=== PATIENT | male | born 1970 | race Caucasian/White ===

== ENCOUNTER 2020-10-30 10:40 | Outpatient (REF) | payer BC, SELFPAY ==
[2020-10-30 13:53] LABS: MANUAL DIFF FLAG NO
[2020-10-30 14:00] LABS: Basophils Percent Auto 0.4 % (0-2); Eosinophils Absolute Auto 0.1 X10*3/uL (0.0-0.4); Eosinophils Percent Auto 1.5 % (0-4); Imm Gran Abs Auto 0.05 X10*3/uL (0.00-0.03); Imm Gran Pct Auto 0.7 % (0.0-0.4); Lymphocytes Absolute Auto 1.7 X10*3/uL (1.2-4.9); Lymphocytes Percent Auto 22.6 % (20-40); Mean Corpuscular HGB Conc 35.7 g/dl (31.0-36.0); Mean Corpuscular Hemoglobin 33.2 pg (27.0-33.0); Mean Corpuscular Volume 92.9 fL (80-98); Monocytes Percent Auto 13.4 % (2-11); Neutrophils Absolute Auto 4.5 X10*3/uL (2.0-8.3); Neutrophils Percent Auto 61.4 % (45-73); Platelet Count 177 X10*3/uL (160-400); Red Blood Count 4.52 X10*6/uL (4.60-5.80); Red Cell Distribution Width 12.3 % (11.0-16.0); White Blood Count 7.4 X10*3/uL (4.8-10.8)
[2020-10-30 14:27] LABS: Alanine Aminotransferase 74 U/L (0-40); Albumin Level 4.6 g/dL (3.5-5.0); Alkaline Phosphatase 91 U/L (39-117); Anion Gap 14 (12-20); Aspartate Amino Transferase 82 U/L (5-37); Bilirubin Total 0.6 mg/dL (0.0-1.0); Blood Urea Nitrogen 10 mg/dL (9-16); Calcium 10.1 mg/dL (8.4-10.2); Carbon Dioxide 26 mmol/L (22-29); Chloride 104 mmol/L (96-108); Cholesterol 182 mg/dL; Estimated Glomerular Filt Rate > 60; Glucose Fasting 140 mg/dL (60-99); HDL Cholesterol 57 mg/dL; LDL Cholesterol Calculated 110 mg/dl; Potassium 4.9 mmol/L (3.3-5.1); Sodium 139 mmol/L (135-145); Total Protein 7.9 g/dL (6.5-8.0); Triglycerides 77 mg/dL
[2020-10-30 14:33] LABS: Prostate Specific Antigen 0.57 ng/mL (<0.05-4.0)
[2020-11-02 08:12] LABS: ~HepC Num1 0.15 S/CO (0.00-0.79); ~Hepatitis C Antibody Nonreactive (Nonreactive)
== END 2020-10-30 10:41 | disposition home or self-care (01) ==
LOC: HO.MANLDS 10:40
PROVIDERS: PCP Internal Medicine; Visit Provider Internal Medicine
DX: Z00.00 Encounter for general adult medical examination without abnormal findings (principal); Z12.5 Encounter for screening for malignant neoplasm of prostate; Z11.59 Encounter for screening for other viral diseases; M10.9 Gout, unspecified
CPT/HCPCS: 36415; 80053; 80061; 84153; 84550; 85025; 86803

== ENCOUNTER 2020-11-30 09:34 | Outpatient (REF) | payer BC, SELFPAY ==
[2020-11-30 12:15] LABS: Estimated Average Glucose 131 mg/dL; Hemoglobin A1c % 6.2 %
== END 2020-11-30 09:35 | disposition home or self-care (01) ==
LOC: HO.MANLDS 09:34
PROVIDERS: PCP Internal Medicine; Visit Provider Internal Medicine
DX: R73.01 Impaired fasting glucose (principal)
CPT/HCPCS: 36415; 83036

== ENCOUNTER 2021-03-08 15:59 | Outpatient (REF) | payer BC, SELFPAY ==
[2021-03-09 03:27] LABS: Estimated Average Glucose 126 mg/dL
== END 2021-03-08 16:00 | disposition home or self-care (01) ==
LOC: HO.MANLDS 15:59
PROVIDERS: PCP Internal Medicine; Visit Provider Internal Medicine
DX: R73.01 Impaired fasting glucose (principal)
CPT/HCPCS: 36415; 83036

== ENCOUNTER 2021-03-12 11:17 | Outpatient (REF) | payer BC, SELFPAY ==
--- NOTE | ~2021-03-12 | XR_ITS ---
EXAMINATION: XR CERVICAL SPINE CLINICAL INFORMATION: Cervical disc degeneration. COMPARISON: None TECHNIQUE: 3 views of the cervical spine were obtained. FINDINGS: No abnormal prevertebral soft tissue swelling is seen. The disc spaces are maintained. No acute fracture or destructive bony lesion is evident. XR/XR cervical spine 3V IMPRESSION: No significant bony abnormality of the cervical spine identified.
== END 2021-03-12 11:18 | disposition home or self-care (01) ==
LOC: HO.XRAY 11:17
PROVIDERS: PCP Internal Medicine; Visit Provider Internal Medicine
DX: M50.30 Other cervical disc degeneration, unspecified cervical region (principal)
CPT/HCPCS: 72040

== ENCOUNTER 2021-04-07 13:18 | Outpatient (REF) | payer BC, SELFPAY ==
--- NOTE | ~2021-04-07 | MR_ITS ---
MR CERVICAL SPINE WITHOUT CONTRAST CLINICAL INFORMATION: Cervical disc degeneration. COMPARISON: Cervical spine radiographs 03/12/2021. TECHNIQUE: MRI of the cervical spine was obtained using routine sequences without contrast. FINDINGS: Cervical alignment is maintained. Vertebral body heights are preserved. There is no bone marrow edema. There are no acute fractures. Craniocervical junction is unremarkable. Disc volumes are maintained. Partially imaged intracranial compartment is unremarkable. Accounting for artifact there is no cord signal abnormality. Cervical arterial flow voids are preserved. There are no significant extraspinal soft tissue findings. C2-C3: Disc contour is normal. Right-sided facet arthropathy. No central canal stenosis and no foraminal stenosis. C3-C4: Disc contour is normal. No central canal stenosis and no foraminal stenosis. C4-C5: Disc contour is normal. No central canal stenosis and no foraminal stenosis. C5-C6: Disc contour is normal. No central canal stenosis and no foraminal stenosis. C6-C7: Disc contour is normal. Bilateral facet arthropathy. No central canal stenosis and no foraminal stenosis. C7-T1: Disc contour is normal. No central canal stenosis and no foraminal stenosis. MR/MR cervical spine wo con IMPRESSION: Mild spondylitic changes at the C2-C3 and C6-C7 levels. There is no severe central canal stenosis and there is no severe foraminal stenosis within the cervical spine. No mass effect on the cervical spinal cord.
== END 2021-04-07 13:19 | disposition home or self-care (01) ==
LOC: HO.MRI 13:18
PROVIDERS: Visit Provider Internal Medicine
DX: M50.30 Other cervical disc degeneration, unspecified cervical region (principal)
CPT/HCPCS: 72141

== ENCOUNTER 2021-09-01 19:52 | Outpatient (REF) | payer BC, SELFPAY | END 2021-09-01 19:53 | disposition home or self-care (01) | LOC: HO.LNP 19:52 | PROVIDERS: Visit Provider Internal Medicine | DX: L03.115 Cellulitis of right lower limb (principal) | CPT/HCPCS: 87071; 87147; 87205 ==

== ENCOUNTER 2021-09-28 14:11 | Outpatient (REF) | payer BC, SELFPAY ==
--- NOTE | ~2021-09-28 | MR_ITS ---
EXAMINATION: MRI FOOT WITHOUT AND WITH CONTRAST, RIGHT CLINICAL INFORMATION: Previous Griffith's neuroma surgery with nonhealing wound. COMPARISON: None TECHNIQUE: MRI without and with intravenous administration of 9 mL of Gadavist is performed on the right foot on a 1.5 T scanner. FINDINGS: There is a peripherally enhancing fluid collection within the 3rd interspace communicating with a defect in the dorsal skin surface overall measuring approximately 1.7 x 0.8 x 3.8 cm extending from the dorsal skin surface to the plantar aspect of the interspace. Given the history of cellulitis and recent surgery, this presumably represents an abscess. There are no adjacent marrow changes to suggest osteomyelitis. There is a trace effusion of the 3rd MTP joint with enhancing synovitis. This may be reactive. MR/MR foot RT wo/w con IMPRESSION: Peripherally enhancing fluid collection of the 3rd interspace communicating with a dorsal skin defect as described.
== END 2021-09-28 14:12 | disposition home or self-care (01) ==
LOC: HO.MRI 14:11
PROVIDERS: Visit Provider Internal Medicine
DX: L03.115 Cellulitis of right lower limb (principal)
CPT/HCPCS: 73720; A9585

== ENCOUNTER 2021-10-27 15:34 | Outpatient (REF) | payer BC, SELFPAY ==
[2021-10-27 18:48] LABS: MANUAL DIFF FLAG NO
[2021-10-27 18:53] LABS: Basophils Percent Auto 0.5 % (0-2); Eosinophils Absolute Auto 0.1 X10*3/uL (0.0-0.4); Eosinophils Percent Auto 1.8 % (0-4); Hemoglobin 14.6 g/dl (14.0-18.0); Imm Gran Abs Auto 0.03 X10*3/uL (0.00-0.03); Imm Gran Pct Auto 0.4 % (0.0-0.4); Lymphocytes Absolute Auto 1.7 X10*3/uL (1.2-4.9); Lymphocytes Percent Auto 21.8 % (20-40); Mean Corpuscular HGB Conc 35.6 g/dl (31.0-36.0); Mean Corpuscular Volume 92.8 fL (80.0-98.0); Mean Platelet Volume 10.2 fL (9.4-12.4); Monocytes Absolute Auto 0.8 X10*3/uL (0.1-1.2); Monocytes Percent Auto 10.6 % (2-11); Neutrophils Percent Auto 64.9 % (45-73); Platelet Count 174 X10*3/uL (160-400); Red Blood Count 4.42 X10*6/uL (4.60-5.80); Red Cell Distribution Width 12.6 % (11.0-16.0); White Blood Count 7.8 X10*3/uL (4.8-10.8)
[2021-10-27 18:59] LABS: Estimated Average Glucose 126 mg/dL
[2021-10-27 19:05] LABS: C Reactive Protein 0.16 mg/dL (< or = 0.50); Uric Acid 4.3 mg/dL (3.4-7.0)
[2021-10-27 19:26] LABS: Free T4 (Free Thyroxine) 1.01 ng/dL (0.71-1.85); Prostate Specific Antigen 0.68 ng/mL (<0.05-4.0); Thyroid Stimulating Hormone 1.46 uIU/mL (0.32-4.0); Vitamin D 25-OH Total 23.9 ng/mL (>30)
[2021-10-27 19:33] LABS: Erythrocyte Sedimentation Rate 6 MM/HR (0-15)
[2021-10-27 19:48] LABS: Folate 6.9 ng/mL (> or = 4.0); Vitamin B12 201 pg/mL (200-900)
== END 2021-10-27 15:35 | disposition home or self-care (01) ==
LOC: HO.MANLDS 15:34
PROVIDERS: Visit Provider Physician Assistant
DX: Z12.5 Encounter for screening for malignant neoplasm of prostate (principal); G62.89 Other specified polyneuropathies; L03.031 Cellulitis of right toe; M10.9 Gout, unspecified; Z80.42 Family history of malignant neoplasm of prostate
CPT/HCPCS: 36415; 82306; 82607; 82746; 83036; 84153; 84439; 84443; 84550; 85025; 85652; 86140

== ENCOUNTER 2021-11-18 07:27 | Outpatient (REF) | payer BC, SELFPAY ==
--- NOTE | ~2021-11-18 | MR_ITS ---
EXAMINATION: MRI FOOT WITHOUT CONTRAST, LEFT CLINICAL INFORMATION: Dorsal left foot pain. Pain with weightbearing. Swelling. COMPARISON: None. TECHNIQUE: Multisequence MR imaging of the left foot was obtained without contrast on a high field strength scanner. FINDINGS: BONE: No marrow edema. No stress reaction or fracture. No concerning lytic or blastic osseous lesion. Mild articular cartilage thinning and attenuation with osteophytes at the 1st metatarsophalangeal joint. MUSCLES/TENDONS: Intact. LIGAMENTS: The Lisfranc ligament is intact. The plantar plates are intact. SOFT TISSUES: No soft tissue mass. No evidence of Rgiffith's neuroma. Trace fluid interposed between the 3rd and 4th metatarsal heads which could represent mild adventitial bursitis. MR/MR foot LT wo con IMPRESSION: 1. No acute osseous injury. No stress reaction or fracture. 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 2. Possible mild adventitial bursitis interposed between the 3rd and 4th metatarsal heads. No evidence of Griffith's neuroma.
== END 2021-11-18 07:28 | disposition home or self-care (01) ==
LOC: HO.MRI 07:27
PROVIDERS: Visit Provider Internal Medicine
DX: M79.672 Pain in left foot (principal); M79.89 Other specified soft tissue disorders
CPT/HCPCS: 73718

== ENCOUNTER 2022-03-07 11:16 | Outpatient (REF) | payer BC, SELFPAY ==
[2022-03-07 13:55] LABS: MANUAL DIFF FLAG NO
[2022-03-07 14:02] LABS: Basophils Percent Auto 0.6 % (0-2); Eosinophils Absolute Auto 0.1 X10*3/uL (0.0-0.4); Eosinophils Percent Auto 1.1 % (0-4); Hematocrit 41.3 % (42.0-52.0); Imm Gran Abs Auto 0.03 X10*3/uL (0.00-0.03); Imm Gran Pct Auto 0.5 % (0.0-0.4); Lymphocytes Absolute Auto 1.3 X10*3/uL (1.2-4.9); Lymphocytes Percent Auto 20.3 % (20-40); Mean Corpuscular HGB Conc 36.3 g/dl (31.0-36.0); Mean Corpuscular Hemoglobin 32.9 pg (27.0-33.0); Mean Corpuscular Volume 90.6 fL (80.0-98.0); Mean Platelet Volume 9.9 fL (9.4-12.4); Monocytes Absolute Auto 0.8 X10*3/uL (0.1-1.2); Monocytes Percent Auto 11.6 % (2-11); Neutrophils Absolute Auto 4.3 x10*3/uL (2.0-8.3); Neutrophils Percent Auto 65.9 % (45-73); Platelet Count 192 X10*3/uL (160-400); Red Blood Count 4.56 X10*6/uL (4.60-5.80); Red Cell Distribution Width 12.2 % (11.0-16.0); White Blood Count 6.5 X10*3/uL (4.8-10.8)
[2022-03-07 14:11] LABS: Estimated Average Glucose 131 mg/dL; Hemoglobin A1c % 6.2 %
[2022-03-07 14:42] LABS: Erythrocyte Sedimentation Rate 4 MM/HR (0-15)
[2022-03-07 15:10] LABS: C Reactive Protein 0.16 mg/dL (< or = 0.50); Free T4 (Free Thyroxine) 0.99 ng/dL (0.71-1.85); Prostate Specific Antigen 0.76 ng/mL (<0.05-4.0); Thyroid Stimulating Hormone 1.53 uIU/mL (0.32-4.0); Uric Acid 5.5 mg/dL (3.4-7.0); Vitamin D 25-OH Total 20.4 ng/mL (>30)
[2022-03-07 15:29] LABS: Folate 16.2 ng/mL (> or = 4.0); Vitamin B12 407 pg/mL (200-900)
== END 2022-03-07 11:17 | disposition home or self-care (01) ==
LOC: HO.MANLDS 11:16
PROVIDERS: Visit Provider Internal Medicine
DX: R73.01 Impaired fasting glucose (principal); Z80.42 Family history of malignant neoplasm of prostate; G62.89 Other specified polyneuropathies; L03.031 Cellulitis of right toe; M10.9 Gout, unspecified; Z12.5 Encounter for screening for malignant neoplasm of prostate
CPT/HCPCS: 36415; 82306; 82607; 82746; 83036; 84153; 84439; 84443; 84550; 85025; 85652; 86140

== ENCOUNTER 2022-05-10 15:58 | Outpatient (REF) | payer BC, SELFPAY ==
[2022-05-10 20:59] LABS: Alanine Aminotransferase 53 U/L (0-40); Albumin Level 4.3 g/dL (3.5-5.0); Alkaline Phosphatase 87 U/L (39-117); Anion Gap 16 (12-20); Aspartate Amino Transferase 61 U/L (5-37); Bilirubin Total 0.7 mg/dL (0.0-1.0); Blood Urea Nitrogen 9 mg/dL (9-16); Calcium 9.9 mg/dL (8.4-10.2); Carbon Dioxide 27 mmol/L (22-29); Chloride 101 mmol/L (96-108); Estimated Glomerular Filt Rate > 60; Glucose Random 172 mg/dL (60-115); Potassium 4.6 mmol/L (3.3-5.1); Sodium 139 mmol/L (135-145)
[2022-05-10 21:27] LABS: Folate 16.9 ng/mL (> or = 4.0); Free T4 (Free Thyroxine) 0.99 ng/dL (0.71-1.85); Thyroid Stimulating Hormone 1.51 uIU/mL (0.32-4.0); Vitamin B12 391 pg/mL (200-900)
== END 2022-05-10 15:59 | disposition home or self-care (01) ==
LOC: HO.MANLDS 15:58
PROVIDERS: Visit Provider Internal Medicine
DX: G62.89 Other specified polyneuropathies (principal)
CPT/HCPCS: 36415; 80053; 82607; 82746; 84439; 84443

== ENCOUNTER 2022-05-20 10:50 | Outpatient (REF) | payer BC, SELFPAY ==
[2022-05-20 14:33] LABS: Estimated Average Glucose 134 mg/dL; Hemoglobin A1c % 6.3 %
[2022-05-20 14:47] LABS: Alanine Aminotransferase 83 U/L (0-40); Albumin Level 4.3 g/dL (3.5-5.0); Alkaline Phosphatase 79 U/L (39-117); Anion Gap 14 (12-20); Aspartate Amino Transferase 89 U/L (5-37); Blood Urea Nitrogen 11 mg/dL (9-16); Calcium 9.4 mg/dL (8.4-10.2); Carbon Dioxide 26 mmol/L (22-29); Chloride 100 mmol/L (96-108); Estimated Glomerular Filt Rate > 60; Glucose Random 197 mg/dL (60-115); Potassium 4.3 mmol/L (3.3-5.1); Sodium 136 mmol/L (135-145); Total Protein 7.1 g/dL (6.5-8.0)
[2022-05-20 15:10] LABS: Folate 16.3 ng/mL (> or = 4.0); Free T4 (Free Thyroxine) 0.95 ng/dL (0.71-1.85); Vitamin B12 > 2000 pg/mL (200-900)
== END 2022-05-20 10:51 | disposition home or self-care (01) ==
LOC: HO.MANLDS 10:50
PROVIDERS: Visit Provider Internal Medicine
DX: R73.01 Impaired fasting glucose (principal); G62.89 Other specified polyneuropathies
CPT/HCPCS: 36415; 80053; 82607; 82746; 83036; 84439; 84443

== ENCOUNTER 2022-09-13 | Outpatient (REF) | payer BC, SELFPAY ==
[2022-09-13 18:30] LABS: MANUAL DIFF FLAG NO
[2022-09-13 18:39] LABS: Basophils Percent Auto 0.5 % (0-2); Eosinophils Absolute Auto 0.1 X10*3/uL (0.0-0.4); Eosinophils Percent Auto 0.8 % (0-4); Imm Gran Abs Auto 0.01 X10*3/uL (0.00-0.03); Imm Gran Pct Auto 0.2 % (0.0-0.4); Lymphocytes Absolute Auto 1.5 X10*3/uL (1.2-4.9); Lymphocytes Percent Auto 24.7 % (20-40); Mean Corpuscular HGB Conc 35.7 g/dl (31.0-36.0); Mean Corpuscular Hemoglobin 33.2 pg (27.0-33.0); Mean Corpuscular Volume 92.9 fL (80.0-98.0); Mean Platelet Volume 10.9 fL (9.4-12.4); Monocytes Absolute Auto 0.8 X10*3/uL (0.1-1.2); Monocytes Percent Auto 12.3 % (2-11); Neutrophils Absolute Auto 3.8 x10*3/uL (2.0-8.3); Neutrophils Percent Auto 61.5 % (45-73); Platelet Count 156 X10*3/uL (160-400); Red Blood Count 4.52 X10*6/uL (4.60-5.80); Red Cell Distribution Width 12.4 % (11.0-16.0); White Blood Count 6.2 X10*3/uL (4.8-10.8)
[2022-09-13 18:53] LABS: Alanine Aminotransferase 67 U/L (0-40); Albumin Level 4.6 g/dL (3.5-5.0); Alkaline Phosphatase 85 U/L (39-117); Anion Gap 17 (12-20); Aspartate Amino Transferase 70 U/L (5-37); Bilirubin Total 1.5 mg/dL (0.0-1.0); Blood Urea Nitrogen 10 mg/dL (9-16); Calcium 9.9 mg/dL (8.4-10.2); Carbon Dioxide 25 mmol/L (22-29); Chloride 98 mmol/L (96-108); Estimated Glomerular Filt Rate > 60; Glucose Random 141 mg/dL (60-115); Magnesium 1.6 mg/dL (1.6-2.6); Potassium 3.9 mmol/L (3.3-5.1); Sodium 136 mmol/L (135-145); Total Protein 8.3 g/dL (6.5-8.0)
[2022-09-13 19:08] LABS: Thyroid Stimulating Hormone 1.69 uIU/mL (0.32-4.0)
[2022-09-13 19:22] LABS: Folate 11.9 ng/mL (> or = 4.0); Vitamin B12 453 pg/mL (200-900)
[2022-09-13 19:28] LABS: Erythrocyte Sedimentation Rate 3 MM/HR (0-15)
== END 2022-09-13 00:01 ==
LOC: HO.MANLDS
PROVIDERS: Visit Provider Internal Medicine
DX: R20.2 Paresthesia of skin (principal)
CPT/HCPCS: 36415; 80053; 82607; 82746; 83735; 84443; 85025; 85652

== ENCOUNTER 2022-12-16 10:26 | Outpatient (REF) | payer BC, SELFPAY ==
[2022-12-16 15:02] LABS: Estimated Average Glucose 120 mg/dL; Hemoglobin A1c % 5.8 % (<6.0)
== END 2022-12-16 10:27 | disposition home or self-care (01) ==
LOC: HO.MANLDS 10:26
PROVIDERS: Visit Provider Internal Medicine
DX: R73.9 Hyperglycemia, unspecified (principal)
CPT/HCPCS: 36415; 83036

== ENCOUNTER 2023-02-15 09:30 | Outpatient (REF) | payer BC, SELFPAY ==
[2023-02-15 13:34] LABS: Estimated Average Glucose 137 mg/dL; Hemoglobin A1c % 6.4 % (<6.0)
[2023-02-15 14:06] LABS: Alanine Aminotransferase 72 U/L (0-40); Albumin Level 4.3 g/dL (3.5-5.0); Alkaline Phosphatase 82 U/L (39-117); Anion Gap 14 (12-20); Aspartate Amino Transferase 108 U/L (5-37); Bilirubin Total 0.8 mg/dL (0.0-1.0); Blood Urea Nitrogen 10 mg/dL (9-16); Calcium 9.4 mg/dL (8.4-10.2); Carbon Dioxide 27 mmol/L (22-29); Chloride 102 mmol/L (96-108); Estimated Glomerular Filt Rate > 60; Glucose Random 148 mg/dL (60-115); Potassium 4.2 mmol/L (3.3-5.1); Sodium 139 mmol/L (135-145); Total Protein 7.4 g/dL (6.5-8.0)
[2023-02-15 14:31] LABS: Folate 4.2 ng/mL (> or = 4.0); Vitamin B12 1656 pg/mL (200-900)
[2023-02-15 14:33] LABS: Free T4 (Free Thyroxine) 0.92 ng/dL (0.71-1.85); Thyroid Stimulating Hormone 1.31 uIU/mL (0.32-4.0)
== END 2023-02-15 09:31 | disposition home or self-care (01) ==
LOC: HO.MANLDS 09:30
PROVIDERS: Visit Provider Internal Medicine
DX: R73.9 Hyperglycemia, unspecified (principal); G62.89 Other specified polyneuropathies; G64 Other disorders of peripheral nervous system
CPT/HCPCS: 36415; 80053; 82607; 82746; 83036; 84439; 84443

== ENCOUNTER 2023-03-01 10:05 | Outpatient (AMB) | payer BC, SELFPAY ==
--- NOTE | 2023-03-01 10:07 | MHC.OFFVIS ---
Intake Vital Signs 03/01/23 10:16 Height 5 ft 9 in Weight 204 lb 6 oz BMI 30.2 BP 146/80 H Blood Pressure Location Lt brachial Position Sitting Respiration 18 Pulse 79 Pulse Source Pulse Oximeter Pulse Oximetry (%) 98 Oxygen Delivery Method Room Air Intake Visit Reasons: Neuropathy / Neuropathic Pain/LMOVM Allergies No Known Allergies Allergy (Verified 03/01/23 10:11) HPI HPI Comments History of Present Illness Details Fidel is a very pleasant 53-year-old male who presents to the office today for evaluation management of his chronic bilateral painful peripheral neuropathy. Patient reports that he is suffering with this pain for at least the last 2 years. He has had nerve conduction studies and been evaluated by Neurology, told that is consistent with diabetic peripheral neuropathy. Patient reports that he had A1c testing 5.8, most recent was 6.4. He has never been started on any medications for diabetes. At last check he was advised to monitor diet and make other lifestyle changes to try to improve his A1c. Patient reports that initially they thought he had mortans neuroma which he subsequently underwent surgery for removal only to find out that this was not the cause of his pain. He has tried gabapentin in the past but it made him feel unwell. He currently takes pregabalin that provides minimal relief, the dose was recently increased by Neurology from 75 mg b.i.d. to 75 mg t.i.d.. He has been told there is no way to reverse the painful neuropathy, and was referred here to manage the symptoms. Pain today is rated as a 10/10, constant. In terms of muscle damage condition is described as burning, aching, sharp, tingling, stabbing, pins and needles. Pain is negatively impacting patient's normal sleep and ability to perform activities of daily living. 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 [facility] Medical History (Updated 03/01/23 @ 10:11 by Jessica Camacho, TROUBLE OPERATOR, CLOTH FRAMER) Impaired fasting glucose Griffith's neuroma of both feet Essential hypertension Abscess of foot Swelling of left foot Neuropathy Cellulitis Peripheral nerve disease Hyperglycemia Hyperlipidemia Paresthesia of lower extremity Type 2 diabetes mellitus without complication Spasm of back muscles Gout Review of Systems Const All systems reviewed & are unremarkable except as noted in HPI and below Physical Exam Vital Signs: Last Vital Signs Pulse 79 03/01/23 10:16 Resp 18 03/01/23 10:16 BP 146/80 H 03/01/23 10:16 Pulse Ox 98 03/01/23 10:16 Oxygen Delivery Method Room Air 03/01/23 10:16 BMI result Body Mass Index 30.2 General: awake, alert, oriented. Answers questions appropriately. Fully engaged in examination. Skin: warm, dry, intact HEENT: Normocephalic. Hearing intact. Cardiac: External chest normal in appearance. Respiratory: No cough, audible wheezing or stridor. Abdomen: without gross distension. MS: No obvious swelling or deformities. Able to transition from sit to stand unassisted. Ambulates with bilaterally normal heel strike and toe off Neurological: Oriented to person, place, time and situation. Thought process intact. Psychiatric: Appropriate mood and affect. Good judgment and insight. Results Reviewed Results Reviewed: 12/2022 Assessment & Plan Assessment & Plan (1) Peripheral neuropathy: Code(s): G62.9 - Polyneuropathy, unspecified Plan Fidel is a very pleasant 53 year old male who presented to the office today for evaluation and management of his painful bilateral peripheral neuropathy. Patient has been suffering with this pain for many years and tried gabapentin and lyrica with minimal relief. EMG reviewed, as per above. Discussed options for treatment including topical Capsaicin in office application, peripheral nerve stimulation and more permanent neuromodulation. Discussed SCS for painful peripheral neuropathy if he does not find relief with Qutenza application, informational pamphlet for Nevro SCS provided. Will trial Amitriptyline 10mg po daily at bedtime for neuropathic pain. Will submit PA for Qutenza, patient to be called to schedule once approved. He is aware of the pre/post instructions including application of EMLA cream prior to coming in for application appointment. All questions and concerns have been answered and patient agrees with the plan. Follow up for Qutenza application, sooner if needed. Medications: New amitriptyline 10 mg PO BEDTIME 30 tabs 0RF Coding Level of Care Code New Pt Level 4 (79991) Diagnoses Peripheral neuropathy G62.9
[2023-03-01 10:16] VITALS: BP 146/80; PULSE 79; RESP 18; O2SAT 98; BMI 30.2
== END 2023-03-01 10:43 | disposition home or self-care (01) ==
PROVIDERS: PCP Internal Medicine; Referring Provider Internal Medicine; Visit Provider Registered Nurse Emergency
DX: G62.9 Polyneuropathy, unspecified (principal); Z79.891 Long term (current) use of opiate analgesic
CPT/HCPCS: 99204

== ENCOUNTER → 2023-03-01 10:05 | Outpatient (BNVA) | payer BC, SELFPAY | PROVIDERS: PCP Internal Medicine; Referring Provider Internal Medicine; Visit Provider Registered Nurse Emergency ==

== ENCOUNTER 2023-05-18 12:49 | Outpatient (AMB) | payer BC, SELFPAY ==
--- NOTE | 2023-05-18 13:16 | MHC.OFFVIS ---
Intake Vital Signs 05/18/23 13:21 Height 5 ft 9 in Weight 208 lb 6 oz BMI 30.8 BP 138/90 H Blood Pressure Location Lt brachial Position Sitting Respiration 17 Pulse 80 Pulse Source Pulse Oximeter Pulse Oximetry (%) 97 Oxygen Delivery Method Room Air Intake Visit Reasons: NEUROPATHIC PAIN/confirmed Allergies No Known Allergies Allergy (Verified 05/18/23 13:21) HPI HPI Comments History of Present Illness Details Patient presents back to the office today for follow-up on his chronic bilateral painful peripheral neuropathy. Patient reports that he took 1 dose of amitriptyline after last visit but did not like how it made him feel. He has not taken any since. He continues with Lyrica as prescribed by outside provider with some relief but ultimately the pain persists. Qutenza was scheduled after last visit but patient canceled the appointment and was then lost to follow-up. He has the topical EMLA cream and would like to reinitiate the process for Qutenza. Prior: Fidel is a very pleasant 53-year-old male who presents to the office today for evaluation management of his chronic bilateral painful peripheral neuropathy. Patient reports that he is suffering with this pain for at least the last 2 years. He has had nerve conduction studies and been evaluated by Neurology, told that is consistent with diabetic peripheral neuropathy. Patient reports that he had A1c testing 5.8, most recent was 6.4. He has never been started on any medications for diabetes. At last check he was advised to monitor diet and make other lifestyle changes to try to improve his A1c. Patient reports that initially they thought he had mortans neuroma which he subsequently underwent surgery for removal only to find out that this was not the cause of his pain. He has tried gabapentin in the past but it made him feel unwell. He currently takes pregabalin that provides minimal relief, the dose was recently increased by Neurology from 75 mg b.i.d. to 75 mg t.i.d.. He has been told there is no way to reverse the painful neuropathy, and was referred here to manage the symptoms. Pain today is rated as a 10/10, constant. In terms of muscle damage condition is described as burning, aching, sharp, tingling, stabbing, pins and needles. Pain is negatively impacting patient's normal sleep and ability to perform activities of daily living. 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 [facility] [facility] Medical History (Updated 03/01/23 @ 10:11 by Jessiac Camacho, NUCLEAR OPERATIONS SPECIALIST, NETWORK RELAY TESTER) Impaired fasting glucose Griffith's neuroma of both feet Essential hypertension Abscess of foot Swelling of left foot Neuropathy Cellulitis Peripheral nerve disease Hyperglycemia Hyperlipidemia Paresthesia of lower extremity Type 2 diabetes mellitus without complication Spasm of back muscles Gout Review of Systems Const All systems reviewed & are unremarkable except as noted in HPI and below Physical Exam Vital Signs: Last Vital Signs Pulse 80 05/18/23 13:21 Resp 17 05/18/23 13:21 BP 138/90 H 05/18/23 13:21 Pulse Ox 97 05/18/23 13:21 Oxygen Delivery Method Room Air 05/18/23 13:21 BMI result Body Mass Index 30.8 General: awake, alert, oriented. Answers questions appropriately. Fully engaged in examination. Skin: warm, dry, intact HEENT: Normocephalic. Hearing intact. Cardiac: External chest normal in appearance. Respiratory: No cough, audible wheezing or stridor. Abdomen: without gross distension. MS: No obvious swelling or deformities. Able to transition from sit to stand unassisted. Ambulates with bilaterally normal heel strike and toe off Neurological: Oriented to person, place, time and situation. Thought process intact. Psychiatric: Appropriate mood and affect. Good judgment and insight. Results Reviewed Results Reviewed: 12/2022 Assessment & Plan Assessment & Plan (1) Peripheral neuropathy: Code(s): G62.9 - Polyneuropathy, unspecified Plan Fidel is a very pleasant 53 year old male who presented to the office today for follow up painful bilateral peripheral neuropathy. Previously scheduled for topical capsaicin in office application but appointment was missed. Would like to reinitiate this process. Will resubmit PA for Qutenza, patient to be called to schedule once approved. He is aware of the pre/post instructions including application of EMLA cream prior to coming in for application appointment. All questions and concerns have been answered and patient agrees with the plan. Follow up for Qutenza application, sooner if needed. Coding Level of Care Code Est Pt Level 3 (67188) Diagnoses Peripheral neuropathy G62.9
[2023-05-18 13:21] VITALS: BP 138/90; PULSE 80; RESP 17; O2SAT 97; BMI 30.8
== END 2023-05-18 14:07 | disposition home or self-care (01) ==
PROVIDERS: PCP Internal Medicine; Referring Provider Internal Medicine; Visit Provider Registered Nurse Emergency
DX: G62.9 Polyneuropathy, unspecified (principal)
CPT/HCPCS: 99213

== ENCOUNTER → 2023-05-18 12:49 | Outpatient (BNVA) | payer BC, SELFPAY | PROVIDERS: PCP Internal Medicine; Referring Provider Internal Medicine; Visit Provider Anesthesiology ==

== ENCOUNTER 2023-06-27 09:51 | Outpatient (AMB) | payer BC, SELFPAY ==
[2023-06-27 09:54] VITALS: BP 167/104; PULSE 70; BMI 31.2
--- NOTE | 2023-06-27 09:54 | MHC.OFFVIS ---
Intake Vital Signs 06/27/23 09:54 Height 5 ft 9 in Weight 211 lb 3.245 oz BMI 31.2 BP 167/104 H Blood Pressure Location Lt brachial Position Sitting Pulse 70 Intake Visit Reasons: Colonoscopy screening Intake Note: New patient in office today for colonoscopy screening. CC: Patient denies having any GI symptoms today. This will be his first colonoscopy. Hand Assembler Required: No Allergies No Known Allergies Allergy (Verified 06/27/23 09:57) HPI Colonoscopy screening HPI Details 53 year old? male with past medical history of neuropathy, diabetes, hypertension is here today for pre colonoscopy screening.? Patient was sent to us by his PCP.? This is his first colonoscopy screening.? Patient denies any gastrointestinal symptoms in the past or at present.? Denies any personal or family history of gastrointestinal disease, colon polyps, or cancer.? Denies history of difficulty with sedation or anesthesia in the past.? Negative for history of sleep apnea.? Denies any history of cardiac, renal, pulmonary, or hepatic disease.?? No history of infectious? diseases like hepatitis A, B, C, HIV or tuberculosis.? Patient is not on any anticoagulation therapy. [facility] Medical History Impaired fasting glucose Griffith's neuroma of both feet Essential hypertension Abscess of foot Swelling of left foot Neuropathy Cellulitis Peripheral nerve disease Hyperglycemia Hyperlipidemia Paresthesia of lower extremity Type 2 diabetes mellitus without complication Spasm of back muscles Gout Surgical History (Updated 06/27/23 @ 09:59 by DIANA Burgess) S/P foot surgery, right Family History (Updated 06/27/23 @ 10:00 by DIANA Burgess) Father Pancreatic cancer Social History (Updated 06/27/23 @ 10:00 by DIANA Burgess) Alcohol intake: current Alcohol intake frequency: a few times a week Patient Tobacco Use Status: Never used Tobacco Review of Systems Const Denies weight gain and Denies weight loss ENT Reports no additional complaints, Denies dysphagia and Denies odynophagia Card Reports no additional complaints Resp Reports no additional complaints GI Denies abdominal pain, Denies belching, Denies melena, Denies bloating, Denies change in bowel habits, Denies dysphagia, Denies excessive flatus, Denies dyspepsia, Denies heartburn, Denies diarrhea, Denies loose stools, Denies nausea, Denies odynophagia and Denies vomiting Reports no additional complaints Musc Reports no additional complaints Neuro Reports no additional complaints Psych Reports no additional complaints Endo Reports no additional complaints Physical Exam Vital Signs: Last Vital Signs Pulse 70 06/27/23 09:54 BP 167/104 H 06/27/23 09:54 BMI result Body Mass Index 31.2 Const General: healthy appearing, no acute distress and well developed Nutritional Appearance: obese Orientation/consciousness: patient oriented x3 Resp Effort & Inspection: normal respiratory effort, able to speak in complete sentences, no tracheal deviation and symmetric chest movement Auscultation: clear to auscultation bilaterally Cardio Rate: regular rate GI Inspection: Yes normal to inspection, No distended and Yes obesity Palpation (GI): Soft to palpation, not firm, nontender and No hepatosplenomegaly present Auscultation: normal bowel sounds General: Yes no CVA tenderness Back/Spine/Pelvis Back: no CVA tenderness Skin General skin exam: elasticity normal, turgor normal and dry skin Neuro General: patient oriented x3 Psych Appearance: grossly normal Mental Status: mental status grossly normal Assessment & Plan Assessment & Plan (1) Screen for colon cancer: Code(s): Z12.11 - Encounter for screening for malignant neoplasm of colon Plan Patient denies any GI, cardiac or respiratory symptoms.? Denies any issues with anesthesia in the past.? Denies any history of sleep apnea.? No history infectious diseases in the past or present.? Not on any anticoagulation therapy.? No family or personal history of colon cancer or polyps.? Patient denies melena, hematochezia, unintentional weight loss or ribbon like stools.? Discussed at length the pre-procedure,? prep, diet & medications as well as what to expect prior, during and after the procedure.?? Stressed the importance of good bowel prep. ?Recommended the use of Vaseline or Calmoseptine OTC & baby wipes with bowel movements to promote comfort.? ?Patient verbalizes understanding and agrees to plan of care.? He was given the opportunity to ask questions and all questions answered.? We will see him after the procedure.? Medications: New polyethylene glycol 3350 (Miralax) As directed by gastroenterology department at [facility] 238 grams PO ONCE 238 grams 0RF Z12.11 - Encounter for screening for malignant neoplasm of colon bisacodyl (Dulcolax (bisacodyl)) take 4 tabs at noon the day before your colonoscopy 20 mg (4 x 5 mg) PO ONCE 1 day 4 tabs 0RF Z12.11 - Encounter for screening for malignant neoplasm of colon Coding Level of Care Code New Pt Level 3 (09241) Diagnoses Screen for colon cancer Z12.11 Time Spent (min) 40 Comment 30 minutes spent with patient and additional 10 minutes spent his records
== END 2023-06-27 10:33 | disposition home or self-care (01) ==
PROVIDERS: PCP Internal Medicine; Visit Provider Nurse Practitioner Family
DX: Z01.818 Encounter for other preprocedural examination (principal); Z12.11 Encounter for screening for malignant neoplasm of colon
CPT/HCPCS: S0285

== ENCOUNTER → 2023-06-27 09:51 | Outpatient (BNVA) | payer BC, SELFPAY | PROVIDERS: PCP Internal Medicine; Visit Provider Nurse Practitioner Family ==

== ENCOUNTER 2023-07-03 20:38 | Emergency (ER) | payer MEDICARE, SELFPAY ==
[2023-07-03 20:41] VITALS: BP 194/122; PULSE 88; RESP 18; TEMP 36.9; O2SAT 100; BMI 31.0
--- NOTE | 2023-07-03 20:41 | ED.GENADULT ---
HPI - General Adult General Chief complaint: General Medical Stated complaint: question of internal bleeding Related Data Home Medications ?Medication ?Instructions ?Recorded ?Confirmed allopurinol 300 mg tablet 300 mg PO DAILY 02/28/23 blood-glucose sensor (Dexcom G6 #1 ea 02/28/23 Sensor device) blood-glucose transmitter (Dexcom #1 ea 02/28/23 G6 Transmitter device) carvedilol 3.125 mg tablet 3.125 mg PO BID 02/28/23 pregabalin 100 mg capsule 100 mg PO TID 06/27/23 Previous Rx's ?Medication ?Instructions ?Recorded bisacodyl 5 mg tablet,delayed 20 mg (4 x 5 mg) PO ONCE 1 day #4 06/27/23 release (Dulcolax (bisacodyl)) tabs polyethylene glycol 3350 17 238 g PO ONCE #238 grams 06/27/23 gram/dose oral powder (Miralax) Allergies Allergy/AdvReac Type Severity Reaction Status Date / Time No Known Allergies Allergy Verified 07/03/23 21:31 [facility] Past Medical History Medical History (Updated 07/08/23 @ 09:08 by Sharon Severino NP) Impaired fasting glucose Griffith's neuroma of both feet Essential hypertension Abscess of foot Swelling of left foot Neuropathy Cellulitis Peripheral nerve disease Hyperglycemia Hyperlipidemia Paresthesia of lower extremity Type 2 diabetes mellitus without complication Spasm of back muscles Gout Surgical History (Updated 06/27/23 @ 09:59 by DIANA Burgess) S/P foot surgery, right Family History Family History (Updated 06/27/23 @ 10:00 by DIANA Burgess) Father Pancreatic cancer Social History Social History (Updated 06/27/23 @ 10:00 by DIANA Burgess) Alcohol intake: current Alcohol intake frequency: a few times a week Patient Tobacco Use Status: Never used Tobacco Physical Exam ED Vital Signs: BMI result Body Mass Index 31.0 Course Course Course Narrative: This is a rapid medical exam: Additional HPI, ROS, PE not included below will be deferred to primary provider. Patient is a 53-year-old male with history of DM, HTN, neuropathy presenting to the emergency department with complaint of LLQ abdominal pain since this morning. Has had dark red blood in bowel movements x 4 episodes today. Vomited once after eating some soup at lunch time. Fatigued all day. Denies fevers. BP 194/112 in triage. Not anticoagulated. Plan: labs, UA Medical Decision Making Lab Data 07/03/23 20:55 07/03/23 20:54 Labs: Lab Results 07/03/23 07/03/23 07/04/23 Range/Units 20:54 20:55 01:34 WBC 5.1 (4.8-10.8) X10*3/uL RBC 4.06 L (4.60-5.80) X10*6/uL Hgb 14.0 (14.0-18.0) g/dl Hct 38.0 L (42.0-52.0) % MCV 93.6 (80.0-98.0) fL MCH 34.5 H (27.0-33.0) pg MCHC 36.8 H (31.0-36.0) g/dl RDW 12.6 (11.0-16.0) % Plt Count 100 L D (160-400) X10*3/uL MPV 10.7 (9.4-12.4) fL Immature Gran % (Auto) 0.4 (0.0-0.4) % Neut % (Auto) 59.4 (45-73) % Lymph % (Auto) 27.3 (20-40) % [place] % (Auto) 10.9 (2-11) % Eos % (Auto) 1.4 (0-4) % Baso % (Auto) 0.6 (0-2) % Lymph # (Auto) 1.4 (1.2-4.9) X10*3/uL [place] # (Auto) 0.6 (0.1-1.2) X10*3/uL Eos # (Auto) 0.1 (0.0-0.4) X10*3/uL Baso # (Auto) 0.0 (0.0-0.2) X10*3/uL Abs Immat Gran (auto) 0.02 (0.00-0.03) X10*3/uL Absolute Neuts (auto) 3.0 (2.0-8.3) x10*3/uL Absolute Nucleated RBC 0.000 (0.0-0.012) X10*3/uL Nucleated RBC % (auto) 0.0 (0.0-0.2) /100WBC PT 14.5 H (11.1-13.3) SEC INR 1.2 H (0.9-1.1) Sodium 138 (135-145) mmol/L Potassium 3.6 (3.3-5.1) mmol/L Chloride 100 (96-108) mmol/L Carbon Dioxide 27 (22-29) mmol/L Anion Gap 15 (12-20) BUN 10 (9-16) mg/dL Creatinine 0.83 (0.5-1.4) mg/dL Estim Creat Clear Calc 119.9 Estimated GFR > 60 Random Glucose 159 H (60-115) mg/dL Calcium 9.5 (8.4-10.2) mg/dL Total Bilirubin 0.8 (0.0-1.0) mg/dL AST 102 H (5-37) U/L ALT 88 H (0-40) U/L Alkaline Phosphatase 120 H (39-117) U/L Total Protein 7.6 (6.5-8.0) g/dL Albumin 4.4 (3.5-5.0) g/dL Urine Color Yellow Urine Appearance Clear Urine pH 6.0 (5.0-9.0) Ur Specific [place] 1.020 (1.005-1.025) Urine Protein 30 (1+) H (Neg-Trace) mg/dL Urine Glucose (UA) Negative (Negative) mg/dL Urine Ketones Negative (Negative) mg/dL Urine Blood Negative (Negative) Urine Nitrite Negative (Negative) Ur Leukocyte Esterase Negative (Negative) Urine RBC 0-2 (0-2) /HPF Urine WBC 0-5 (0-5) /HPF Ur Squamous Epith Cells 0-2 (0-2) /HPF Urine Bacteria None Seen (None Seen) Hyaline Casts 0-2 (0-2) /LPF Discharge Plan Discharge Clinical Impression: Diagnosis unknown Patient Disposition: Left W/O Completing Treatment Prescriptions: No Action carvedilol 3.125 mg tablet 3.125 mg PO BID allopurinol 300 mg tablet 300 mg PO DAILY (DME) Dexcom G6 Transmitter Device See Rx Instructions .ROUTE .MEDSUPPLY Qty: 1 Rx Instructions: As directed (DME) Dexcom G6 Sensor Device See Rx Instructions .ROUTE Q10D Qty: 1 Rx Instructions: As directed pregabalin 100 mg capsule 100 mg PO TID bisacodyl [Dulcolax (bisacodyl)] 5 mg tablet,delayed release (DR/EC) 20 mg PO ONCE 1 Days Qty: 4 0RF Rx Instructions: take 4 tabs at noon the day before your colonoscopy polyethylene glycol 3350 [Miralax] 17 gram/dose powder 238 g PO ONCE Qty: 238 0RF Rx Instructions: As directed by gastroenterology department at [facility] Discharge Date/Time: 07/04/23 03:23
[2023-07-03 20:58] LABS: MANUAL DIFF FLAG NO
[2023-07-03 21:08] LABS: INTERNATIONAL NORM RATIO 1.2 (0.9-1.1); Prothrombin Time 14.5 SEC (11.1-13.3)
[2023-07-03 21:15] LABS: Basophils Percent Auto 0.6 % (0-2); Eosinophils Absolute Auto 0.1 X10*3/uL (0.0-0.4); Eosinophils Percent Auto 1.4 % (0-4); Imm Gran Abs Auto 0.02 X10*3/uL (0.00-0.03); Imm Gran Pct Auto 0.4 % (0.0-0.4); Lymphocytes Absolute Auto 1.4 X10*3/uL (1.2-4.9); Lymphocytes Percent Auto 27.3 % (20-40); Mean Corpuscular HGB Conc 36.8 g/dl (31.0-36.0); Mean Corpuscular Hemoglobin 34.5 pg (27.0-33.0); Mean Corpuscular Volume 93.6 fL (80.0-98.0); Mean Platelet Volume 10.7 fL (9.4-12.4); Monocytes Absolute Auto 0.6 X10*3/uL (0.1-1.2); Monocytes Percent Auto 10.9 % (2-11); Neutrophils Percent Auto 59.4 % (45-73); Platelet Count 100 X10*3/uL (160-400); Red Blood Count 4.06 X10*6/uL (4.60-5.80); Red Cell Distribution Width 12.6 % (11.0-16.0); White Blood Count 5.1 X10*3/uL (4.8-10.8)
[2023-07-03 21:18] LABS: Alanine Aminotransferase 88 U/L (0-40); Albumin Level 4.4 g/dL (3.5-5.0); Alkaline Phosphatase 120 U/L (39-117); Anion Gap 15 (12-20); Aspartate Amino Transferase 102 U/L (5-37); Bilirubin Total 0.8 mg/dL (0.0-1.0); Blood Urea Nitrogen 10 mg/dL (9-16); Calcium 9.5 mg/dL (8.4-10.2); Carbon Dioxide 27 mmol/L (22-29); Chloride 100 mmol/L (96-108); Creatinine Clr Calc Pharmacy 119.9; Estimated Glomerular Filt Rate > 60; Glucose Random 159 mg/dL (60-115); Potassium 3.6 mmol/L (3.3-5.1); Sodium 138 mmol/L (135-145); Total Protein 7.6 g/dL (6.5-8.0)
[2023-07-04 01:26] VITALS: BP 157/100; PULSE 71; RESP 16; TEMP 37.1; O2SAT 98
[2023-07-04 01:42] LABS: Appearance Urine Clear; Color Urine Yellow; Glucose Urine UA Negative (Negative); Leukocyte Esterase Urine Negative (Negative); Nitrite Urine Negative (Negative); UMIC TRIGGER UACC YES; Urine Blood Negative (Negative); Urine Ketones Negative (Negative); Urine Protein 30 (1+) mg/dL (Neg-Trace)
[2023-07-04 01:44] LABS: Bacteria Urine None Seen (None Seen); Hyaline Casts Urine 0-2 /LPF (0-2); RBC Urine 0-2 /HPF (0-2); Squamous Epithelial Cell Urine 0-2 /HPF (0-2); WBC Urine 0-5 /HPF (0-5)
[2023-07-04 01:48] VITALS: BP 159/105; PULSE 68; RESP 17; TEMP 36.6; O2SAT 100
--- NOTE | 2023-07-04 03:23 | PC.NURSE ---
pt unable to stay due to meeting in am at 1000, pt states he will follow up with his primary and pt has seen his labs in the porthole.
== END 2023-07-04 03:23 | disposition left against medical advice (07) ==
PROVIDERS: Registered Nurse Emergency; Emergency Provider Emergency Medicine
DX: R10.32 Left lower quadrant pain (principal); R11.2 Nausea with vomiting, unspecified; Z79.899 Other long term (current) drug therapy
CPT/HCPCS: 36415; 80053; 81001; 85025; 85610; 99283

== ENCOUNTER 2023-07-04 12:07 | Outpatient (REF) | payer MEDICARE, BC, SELFPAY ==
[2023-07-04 18:01] LABS: MANUAL DIFF FLAG NO
[2023-07-04 18:30] LABS: Iron 200 mcg/dL (45-160); Percent Iron Saturation 66 % (15-50); Total Iron Binding Capacity 304 mcg/dL (228-428); Unsaturated Iron Binding 104 ug/dL
[2023-07-04 18:46] LABS: Basophils Percent Auto 0.5 % (0-2); Eosinophils Absolute Auto 0.1 X10*3/uL (0.0-0.4); Eosinophils Percent Auto 1.6 % (0-4); Hematocrit 38.8 % (42.0-52.0); Hemoglobin 14.2 g/dl (14.0-18.0); Imm Gran Abs Auto 0.02 X10*3/uL (0.00-0.03); Imm Gran Pct Auto 0.5 % (0.0-0.4); Lymphocytes Absolute Auto 0.9 X10*3/uL (1.2-4.9); Mean Corpuscular HGB Conc 36.6 g/dl (31.0-36.0); Mean Corpuscular Hemoglobin 34.5 pg (27.0-33.0); Mean Corpuscular Volume 94.4 fL (80.0-98.0); Monocytes Absolute Auto 0.5 X10*3/uL (0.1-1.2); Monocytes Percent Auto 12.4 % (2-11); Neutrophils Absolute Auto 2.3 x10*3/uL (2.0-8.3); Red Blood Count 4.11 X10*6/uL (4.60-5.80); Red Cell Distribution Width 12.7 % (11.0-16.0); White Blood Count 3.8 X10*3/uL (4.8-10.8)
[2023-07-04 19:11] LABS: Platelet Count 96 X10*3/uL (160-400)
[2023-07-04 19:25] LABS: Ferritin 2442 ng/mL (20-250)
== END 2023-07-04 12:08 | disposition home or self-care (01) ==
LOC: HO.MANLDS 12:07
PROVIDERS: Visit Provider Physician Assistant
DX: K92.1 Melena (principal)
CPT/HCPCS: 36415; 82728; 83540; 85025

== ENCOUNTER 2023-07-11 09:23 | Outpatient (REF) | payer MEDICARE, BC, SELFPAY ==
[2023-07-11 13:26] LABS: MANUAL DIFF FLAG NO
[2023-07-11 13:48] LABS: Basophils Percent Auto 0.9 % (0-2); Eosinophils Absolute Auto 0.1 X10*3/uL (0.0-0.4); Hematocrit 35.6 % (42.0-52.0); Hemoglobin 12.7 g/dl (14.0-18.0); Lymphocytes Absolute Auto 1.2 X10*3/uL (1.2-4.9); Lymphocytes Percent Auto 33.8 % (20-40); Mean Corpuscular HGB Conc 35.7 g/dl (31.0-36.0); Mean Corpuscular Volume 95.2 fL (80.0-98.0); Monocytes Absolute Auto 0.5 X10*3/uL (0.1-1.2); Monocytes Percent Auto 13.3 % (2-11); Neutrophils Absolute Auto 1.7 x10*3/uL (2.0-8.3); Platelet Count 132 X10*3/uL (160-400); Red Blood Count 3.74 X10*6/uL (4.60-5.80); Red Cell Distribution Width 13.2 % (11.0-16.0); White Blood Count 3.5 X10*3/uL (4.8-10.8)
[2023-07-11 14:14] LABS: Iron 97 mcg/dL (45-160); Percent Iron Saturation 35 % (15-50); Total Iron Binding Capacity 276 mcg/dL (228-428); Unsaturated Iron Binding 179 ug/dL
[2023-07-11 15:22] LABS: Ferritin 1633 ng/mL (20-250)
== END 2023-07-11 09:24 | disposition home or self-care (01) ==
LOC: HO.MANLDS 09:23
PROVIDERS: Visit Provider Physician Assistant
DX: E83.119 Hemochromatosis, unspecified (principal)
CPT/HCPCS: 36415; 81256; 82728; 83540; 85025

== ENCOUNTER 2023-08-03 11:33 | Outpatient (REF) | payer BC, SELFPAY ==
--- NOTE | ~2023-08-03 | CT_ITS ---
EXAMINATION: CT ABDOMEN AND PELVIS WITH CONTRAST CLINICAL INFORMATION: Melena. COMPARISON: None available. TECHNIQUE: Multidetector volumetric images were obtained from the superior aspect of the liver through the pubic symphysis following administration 85 mL of Omnipaque 350 intravenous contrast. Sagittal and coronal reformatted images were obtained on the technologist's workstation. Oral contrast: No This CT examination was performed using dose optimization techniques as appropriate, variously including the following: *Automated exposure control *Adjustment of mA and/or kV according to patient size (this includes techniques or standardized protocols for targeted exams where dose is matched to indication/reason for exam; i.e. extremities or head) *Use of iterative reconstruction technique DLP: Poorly defined mGy-cm FINDINGS: LUNG BASES: The visualized lung bases are unremarkable. LIVER, GALLBLADDER, AND BILIARY TREE: The liver is normal in size, shape, and generally diminished in attenuation. No focal hepatic lesion or biliary ductal dilatation is present. The gallbladder is unremarkable with no evidence of radiopaque gallstones, gallbladder wall thickening, or obvious pericholecystic inflammatory changes. PANCREAS: Unremarkable. SPLEEN: Unremarkable. ADRENAL GLANDS: Unremarkable. KIDNEYS AND URETERS: The kidneys are normal in size, shape, and attenuation. No hydronephrosis, hydroureter, or calculi seen. There is very mild nonspecific bilateral perinephric stranding. BLADDER: Unremarkable. GASTROINTESTINAL TRACT: The small and large bowel are unremarkable. The appendix is unremarkable. ABDOMINAL WALL: There is a tiny fat-containing umbilical hernia. LYMPH NODES: Normal. VASCULAR: Unremarkable. PELVIC VISCERA: The prostate and seminal vesicles are unremarkable. OSSEOUS STRUCTURES: At L4-L5 and L5-S1, there is moderately severe degenerative disease, with vacuum phenomenon. No acute or aggressive osseous abnormality is seen. CT/CT abdomen pelvis w IV con IMPRESSION: 1. There is diffuse hepatic steatosis. 2. There is a tiny fat-containing umbilical hernia. Fleischner guidelines were followed.
[2023-08-03] MEDS: Barium Sulfate Oral (Berry) 450 ML ORAL.SUSP 900 ML PO (14:48)
[2023-08-03] MEDS: iohexoL 350 MG/ML 100 ML INFUS..BTL 85 ML IV (14:49)
== END 2023-08-03 11:34 | disposition home or self-care (01) ==
LOC: HO.CT 11:33
PROVIDERS: PCP Internal Medicine; Visit Provider Physician Assistant
DX: K92.1 Melena (principal)
CPT/HCPCS: 74177; Q9967

== ENCOUNTER 2023-11-22 07:06 | Day surgery (SDC) | payer BC, SELFPAY ==
--- NOTE | 2023-11-20 15:19 | P.CONAN_ITS ---
Documented by User: Lorri Dejesus NP 11/20/23 15:21 HPI - Anesthesia Eval Consult details Narrative: 53yo M for Colonoscopy PMFSH Active Problems Active Problems: All Active Problems Peripheral neuropathy (Acute) Past Medical History Medical History Impaired fasting glucose Griffith's neuroma of both feet Essential hypertension Abscess of foot Swelling of left foot Neuropathy Cellulitis Peripheral nerve disease Hyperglycemia Hyperlipidemia Paresthesia of lower extremity Type 2 diabetes mellitus without complication Spasm of back muscles Gout Family History Family History (Updated 06/27/23 @ 10:00 by DIANA Burgess) Father Pancreatic cancer Surgical History Surgical History S/P foot surgery, right Social History Social History (Updated 06/27/23 @ 10:00 by DIANA Burgess) Alcohol intake: current Alcohol intake frequency: a few times a week Patient Tobacco Use Status: Never used Tobacco Use of substances other than those prescribed or required for medical reasons: No Are you DNR?: No Advance Directives: No Advance Directives Information Provided: Yes Meds Allergies Allergy/AdvReac Type Severity Reaction Status Date / Time No Known Allergies Allergy Verified 07/03/23 21:31 Home Medications ?Medication ?Instructions ?Recorded ?Confirmed ?Last Taken ?Type allopurinol 300 mg tablet 300 mg PO DAILY 02/28/23 Unknown History blood-glucose sensor (Dexcom G6 #1 ea 02/28/23 Unknown History Sensor device) blood-glucose transmitter (Dexcom #1 ea 02/28/23 Unknown History G6 Transmitter device) carvedilol 3.125 mg tablet 3.125 mg PO BID 02/28/23 Unknown History pregabalin 100 mg capsule 100 mg PO TID 06/27/23 Unknown History Exam Pertinent Lab Results Pertinent Lab Results: Laboratory Tests 07/03/23 07/11/23 20:54 09:25 WBC 3.5 L Hgb 12.7 L Hct 35.6 L Plt Count 132 L D Sodium 138 Potassium 3.6 Chloride 100 Carbon Dioxide 27 BUN 10 Creatinine 0.83 Assessment and Plan Assessment Anesthesia Assessment: Chart Reviewed Documented by User: Red Gaytan MD 11/22/23 08:11 [facility] Past Medical History Medical History Impaired fasting glucose Griffith's neuroma of both feet Essential hypertension Abscess of foot Swelling of left foot Neuropathy Cellulitis Peripheral nerve disease Hyperglycemia Hyperlipidemia Paresthesia of lower extremity Type 2 diabetes mellitus without complication Spasm of back muscles Gout Family History Family History (Updated 06/27/23 @ 10:00 by DIANA Burgess) Father Pancreatic cancer Family history of problems with anesthesia: No Surgical History Surgical History S/P foot surgery, right History of Problems with Anesthesia: No Social History Social History (Updated 06/27/23 @ 10:00 by DIANA Buregss) Alcohol intake: current Alcohol intake frequency: a few times a week Patient Tobacco Use Status: Never used Tobacco Use of substances other than those prescribed or required for medical reasons: No Are you DNR?: No Advance Directives: No Advance Directives Information Provided: Yes Meds Allergies Allergy/AdvReac Type Severity Reaction Status Date / Time No Known Allergies Allergy Verified 07/03/23 21:31 Home Medications ?Medication ?Instructions ?Recorded ?Confirmed ?Last Taken ?Type allopurinol 300 mg tablet 300 mg PO DAILY 02/28/23 Unknown History blood-glucose sensor (Dexcom G6 #1 ea 02/28/23 Unknown History Sensor device) blood-glucose transmitter (Dexcom #1 ea 02/28/23 Unknown History G6 Transmitter device) carvedilol 3.125 mg tablet 3.125 mg PO BID 02/28/23 Unknown History pregabalin 100 mg capsule 100 mg PO TID 06/27/23 Unknown History Exam Airway Mallampati Class: III TM Dist: >3cm Neck ROM: Full Assessment and Plan Assessment Anesthesia Assessment: Anesthesia Plan Discussed Final Anesthetic Review Family History of Problems with Anesthesia: No History of Problems with Anesthesia: No NPO: Yes ASA Class: III Final Preanesthetic Review: No Changes in Pt Med Stat, Meds/Allgs Chart Reviewed, Consent Obtained/Reviewed and Anes Risks/Benef Reviewed Patient Risk: Intermediate Procedure Risk: Low Anesthetic Plan Anesthetic Plan: TIVA Disposition: Standard PACU
[2023-11-22 07:35] VITALS: BP 123/83; PULSE 66; RESP 16; TEMP 36.4; O2SAT 97
[2023-11-22] MEDS: Lactated Ringers 1,000 ML 100 ML IVCONT (07:45)
[2023-11-22 07:54] LABS: Glucose, Whole Blood 167 mg/dL (60-115)
--- NOTE | 2023-11-22 08:30 | MHC.SHP ---
Pre-Procedural Eval Section A - 24 Hr Update-Section A only Date of Service: 11/22/23 Section B - Complete if H&P > 30 days Chief Complaint: Encounter for screening for malignant neoplasm of Details of Present Illness: Pancreatic cancer- FH in father Relevant Family History (Specify if Yes): Yes Relevant Social History: Alcohol Use Present Medications: see Short Stay Collaborative assessment Medical History: Significant History (Impaired fasting glucose Griffith's neuroma of both feet Essential hypertension Abscess of foot Swelling of left foot Neuropathy Cellulitis Peripheral nerve disease Hyperglycemia Hyperlipidemia Paresthesia of lower extremity Type 2 diabetes mellitus without complication Spasm of back muscles Gout) History of Previous Operations: Relevant previous surgery/procedure and date(s) (S/P foot surgery, right) Allergies: Allergies Allergy/AdvReac Type Severity Reaction Status Date / Time No Known Allergies Allergy Verified 07/03/23 21:31 Review of Systems Sugical H&P ROS: Negative: Constitution, Cardiovascular, Respiratory, Neurological, Psychiatric, Hem-Onc, Allergic/Immunologic, Gastrointestinal, Genitourinary, Musculoskeletal, Integumentary, Endocrine and Eyes/Ears/Nose/Throat Exam Surgical H&P Exam: Normal: HEENT, Normal: Heart, Normal: Lungs, Normal: Extremities, Normal: Abdomen, Normal: Skin and Normal: Neurological Plan Diagnosis/Plan: Unchanged I have reviewed the history and physical and performed a pertinent physical examination on my patient. No changes have occurred unless specified. Time Spent With Patient Time: Total time managing care of this patient today ____ minutes.
--- NOTE | 2023-11-22 08:57 | P.OPN-COLO_ITS ---
Colonoscopy Operative Note Operative Note Date of Service: 11/22/23 Narrative: Operative Information Procedure Description: Colonoscopy Indication: Screening Anesthesia: MAC COLONOSCOPY Instrument: Olympus variable stiffness pediatric scope 190L Colonoscopy Monitoring: Vital signs and clinical assessment, continuous EKG monitoring, Pulse oximetry, Carbon Dioxide monitoring and blood pressure monitoring were done throughout the procedure. Colon withdrawal time was 8 minutes. Procedure: The patient was placed in the left lateral decubitis position and pre-procedure medications were administered. After a digital rectal examination of the ano-rectum, the video colonoscope was inserted into the rectum and advanced through the colon to the cecum/TI. The colonoscope was slowly withdrawn in a retrograde panoramic fashion and the colon mucosa was carefully examined including a retroflexed view of the rectum. Findings and interventions are described below. Procedure Difficulty: easy Findings: Terminal Ileum-normal Cecum:normal Right sided retroflexion- normal Ascending Colon: normal Transverse Colon -normal Descending Colon:normal Sigmoid Colon: normal Rectum: Retroflexion with medium sized internal hemorrhoids seen, grade I Anorectum - normal Intervention: none Colon preparation: [place] Bowel Preparation Scale Right colon; 2 Transverse colon: 3 Left colon; 3 (0 = Unprepared colon segment with mucosa not seen due to solid stool that cannot be cleared. 1 = Portion of mucosa of the colon segment seen, but other areas of the colon segment not well seen due to staining, residual stool and/or opaque liquid. 2 = Minor amount of residual staining, small fragments of stool and/or opaque liquid, but mucosa of colon segment seen well. 3 = Entire mucosa of colon segment seen well with no residual staining, small fragments of stool or opaque liquid) Impression and Post Procedure Diagnosis: internal hemorrhoids Plan: High fiber diet leaflet Avoid straining at stool, epsom salts and sitz bath, anusol supps or cream Repeat Colonoscopy in 10 years or earlier if clinically indicated Above findings were reviewed with the patient and relevant handouts were provided if indicated.
[2023-11-22 08:59] VITALS: BP 119/78; PULSE 80; RESP 15; TEMP 36.3; O2SAT 98
[2023-11-22 09:15] VITALS: BP 123/84; PULSE 65; RESP 18; TEMP 37.5; O2SAT 100
== END 2023-11-22 09:38 | disposition home or self-care (01) ==
PROVIDERS: PCP Internal Medicine; Visit Provider Internal Medicine Gastroenterology
PROC: 0DJD8ZZ Inspection of Lower Intestinal Tract, Via Natural or Artificial Opening Endoscopic (ICD-10-PCS; CPT 45378; principal; 2023-11-22 08:30)
DX: Z12.11 Encounter for screening for malignant neoplasm of colon (principal); K64.0 First degree hemorrhoids; Z80.0 Family history of malignant neoplasm of digestive organs; I10 Essential (primary) hypertension; E78.5 Hyperlipidemia, unspecified; E11.9 Type 2 diabetes mellitus without complications; G62.9 Polyneuropathy, unspecified; Z79.899 Other long term (current) drug therapy
CPT/HCPCS: 45378; 82947; J2704

== ENCOUNTER → 2023-11-22 07:06 | Outpatient (BNV) | payer BC, SELFPAY | PROVIDERS: PCP Internal Medicine; Visit Provider Internal Medicine Gastroenterology | DX: Z12.11 Encounter for screening for malignant neoplasm of colon (principal); K64.0 First degree hemorrhoids | CPT/HCPCS: 45378 ==

== ENCOUNTER 2024-06-21 12:00 | Outpatient (REF) | payer OTHER, SELFPAY ==
[2024-06-21 17:52] LABS: MANUAL DIFF FLAG NO
[2024-06-21 17:54] LABS: Basophils Percent Auto 0.5 % (0-2); Eosinophils Absolute Auto 0.1 X10*3/uL (0.0-0.4); Eosinophils Percent Auto 1.4 % (0-4); Hematocrit 39.2 % (42.0-52.0); Imm Gran Abs Auto 0.02 X10*3/uL (0.00-0.03); Imm Gran Pct Auto 0.3 % (0.0-0.4); Lymphocytes Absolute Auto 2.1 X10*3/uL (1.2-4.9); Mean Corpuscular HGB Conc 35.7 g/dl (31.0-36.0); Mean Corpuscular Hemoglobin 33.4 pg (27.0-33.0); Mean Corpuscular Volume 93.6 fL (80.0-98.0); Mean Platelet Volume 10.3 fL (9.4-12.4); Monocytes Absolute Auto 0.8 X10*3/uL (0.1-1.2); Neutrophils Absolute Auto 3.3 x10*3/uL (2.0-8.3); Neutrophils Percent Auto 52.8 % (45-73); Platelet Count 197 X10*3/uL (160-400); Red Blood Count 4.19 X10*6/uL (4.60-5.80); Red Cell Distribution Width 13.2 % (11.0-16.0); White Blood Count 6.3 X10*3/uL (4.8-10.8)
[2024-06-21 18:03] LABS: Estimated Average Glucose 97 mg/dL; Hemoglobin A1C 113.2853 umol/L; Total Hemoglobin (HGBA1C) 3695.3984 umol/L
[2024-06-21 18:21] LABS: Anion Gap 15 (12-20)
[2024-06-21 18:24] LABS: Alanine Aminotransferase 48 U/L (0-40); Albumin Level 4.5 g/dL (3.5-5.0); Alkaline Phosphatase 69 U/L (39-117); Aspartate Amino Transferase 38 U/L (5-37); Bilirubin Total 0.4 mg/dL (0.0-1.0); Blood Urea Nitrogen 7 mg/dL (9-16); Calcium 9.7 mg/dL (8.4-10.2); Carbon Dioxide 22 mmol/L (22-29); Chloride 107 mmol/L (96-108); Estimated Glomerular Filt Rate > 60; Glucose Random 61 mg/dL (60-115); Potassium 4.2 mmol/L (3.3-5.1); Sodium 140 mmol/L (135-145)
[2024-06-21 18:48] LABS: Thyroid Stimulating Hormone 0.94 uIU/mL (0.32-4.0)
[2024-06-21 19:35] LABS: T4 Thyroxine 8.1 ug/dL (4.5-12.0)
== END 2024-06-21 12:01 | disposition home or self-care (01) ==
LOC: HO.MANLDS 12:00
PROVIDERS: Visit Provider Physician Assistant
DX: E79.0 Hyperuricemia without signs of inflammatory arthritis and tophaceous disease (principal); E11.9 Type 2 diabetes mellitus without complications; Z13.29 Encounter for screening for other suspected endocrine disorder
CPT/HCPCS: 36415; 80053; 83036; 84436; 84443; 84550; 85025

== ENCOUNTER 2024-09-13 16:08 | Outpatient (REF) | payer OTHER, SELFPAY ==
--- OUTSIDE RECORDS SUMMARY | 2024-09-13 16:11 | XMS_ITS | Data Portability ---
Author Organization [facility] [place] [facility] _[facility] Address [address] [address] Care Team Providers Care Control And Recovery Combat Rescue Name Role Phone ANABELLA BRAY Primary Care Provider KAUSHAL VASQUEZ Neurologist Assessment Encounter Date Assessment Date Assessment LastModified by Organization Details LastModified Time 12/14/2022 12/14/2022 In summary, this is a 52-year-old man with a history of prediabetes, hypertension and gout who presents for a neuromuscular medicine consultation for evaluation of polyneuropathy. He was referred by Dr. Vasquez. He describes bilateral symptoms predominantly of burning pains in the feet that have progressed slowly over 2 years to above the ankles. Examination shows length-dependent deficits to small more than large fibers and absent ankle jerks, consistent with a polyneuropathy. I repeated an EMG/NCS today and there was evidence of large-fiber involvement predominantly in an axonal pattern but I agree with Dr. Vasquez that some motor conduction velocities were mildly slowed and some late responses were moderately prolonged in the legs. This can be a sign of myelin dysfunction without meeting criteria for demyelinating features in conditions such as CIDP. We repeated a laboratory workup today and it has not yielded new results. He has a history of prediabetes and drinks alcohol in amounts above the recommended limits (at least 16 drinks/week, perhaps more) and I think the combination of alcohol neurotoxicity and prediabetes can certainly account for his painful polyneuropathy. Myelin dysfunction can be seen in alcohol related polyneuropathy (and of course in diabetic polyneuropathy but conduction slowing usually correlates with severity of diabetes so prediabetics are less likely to show slowing). The predominantly sensory variant of CIDP is less likely clinically and electrophysiologically though if he was to progress despite significantly reducing his alcohol intake and normalizing his sugars, a trial of IVIG could certainly be considered in my opinion. Of note, B12 checked today was borderline (324) with mildly elevated homocysteine, however methylmalonic acid was normal and the syndrome of B12 deficiency is predominantly a dorsal column syndrome so I think B12 deficiency is unlikely. He could try taking a B12 supplement (1000mcg daily) for a month but I doubt it will change his symptoms. For treatment, we discussed reducing alcohol intake and better controlling his sugars. His pregabalin dose is very low and I suggested he titrates the dose with Dr. Vasquez, starting with 50mg BID and increasing further to effect. Lidocaine patches could also be helpful at night time without systemic side effects. He will follow-up with Dr. Vasquez but I remain available should further questions or concerns arise. I spent 60 min today on preparing for the visit (including reviewing tests), obtaining a history and performing an examination through a tcyq-mc-izxw encounter, counseling and educating the patient, ordering tests, communicating with other health care prowviders, documenting clinical information and coordinating care for all problems noted above. [email or web address] Not available 12/31/2022 10:36:03 Plan of Treatment Reminders Order Date Submit Date Provider Last Modified By Organization Details Last Modified Time Details Appointments None recorded. Lab hepatitis C virus Ab, serum 2022 023 [facility], [address] [place] [address], [phone], 3 06:52:30 vitamin B6 (pyridoxine ), plasma 2022 023 [facility], [address] [place] [address], [phone], 3 14:40:22 protein electrophor esis panel, serum or plasma 2022 023 [facility], [address] [place] [address], [id number], 3 12:33:40 immunofixat ion, serum 2022 023 [facility], [address] [place] [address], [id number], 3 12:18:10 kappa + lambda light chains, free + ratio, quantitativ e, serum 2022 023 [facility], [address], [place] [address], [place], [phone], 3 15:23:09 vitamin B1 (thiamine), blood 2022 023 [facility], [address] [place] [address], [place] [address], [place], [address], 3 15:11:59 vitamin B12 + folate, serum or blood 2022 023 MALDEN [facility], [address] [place] [address], [place] [address], [place], [address], 3 09:43:51 mma (methylmalo pooja acid), serum 2022 023 [facility], [address] [place] [address], [place], [phone], 3 14:29:19 TSH, serum or plasma 2022 023 [facility], [address] [place] [address], [place], [phone], 3 06:52:29 RPR (rapid plasma reagin), serum 2022 023 [facility], [address] [place] [address], [place], [address], 3 09:43:52 copper, serum or plasma 2022 023 [facility], [address], [place] [address], [place], [phone], 3 16:35:43 Referral None recorded. Procedures None recorded. Surgeries None recorded. Imaging None recorded. Medication Orders None recorded. Patient TargetsNo targets recorded. Patient InstructionsNo instructions recorded. Reason for Referral None Reported. Results Created Date Observation Date Name Description Value Unit Range Abnormal Flag Note LastModifiedBy Organization Detail LastModifiedTime 12/15/1912/15/2022 TSH W/REF L FT4 TSH w/reflex to FT4 1.88 mIU/L 0.40-4 .50 normal Not Available [facility] [address], [place], [address], 12/15/2022 06:52:29 12/15/1912/15/2022 HEP C AB W/REF L HCV hepatitis C antibody NON-RE ACTIVE non-re active normal HCV antib evelyne was non-r eacti ve. There is no labor atory evide nce of HCV infec tion. In most cases , no furth er actio n is requi red. Howev er, if recen t HCV expos ure is suspe cted, a test for HCV RNA (test code 65297 ) is sugteri orosco. For addit ional infor taryn n pleas e refer to http: //[facility] catmegan n.que stdia gnost ics.c om/fa q/FAQ 22v1 (This link is being provi ded for infor taryn nal/ educa davon l purpo ses only. ) Not Available [facility] [place] [facility] [address], [place], [address], 12/15/2022 06:52:30 12/15/1912/15/2022 VIT B12/F OLATE ,SERU M vitamin B12 324 pg/mL 200-11 00 normal Pleas e Note: Altho ugh the refer ence range for vitam in B12 is 200-1 100 pg/mL , it has been repor whitley that betwe en 5 and 10% of patie nts with value s betwe en 200 and 400 pg/mL may exper ience neuro psych iatri c and hemat ologi c abnor malit ies due to occul t B12 defic iency ; less than 1% of patie nts with value s above 400 pg/mL will have sympt oms. Not Available [facility] [place] [facility] [address] [place], [place], [address], 12/15/2022 09:43:51 12/15/1912/15/2022 VIT B12/F OLATE ,SERU M folate, serum 13.3 NG/mL normal Refer ence Range Low: <3.4 Borde rline : 3.4-5 .4 Blanquita l: >5.4 Not Available [facility] [place] [facility] [address] [place], [place], [address], 12/15/2022 09:43:51 12/15/1912/15/2022 RPR(D X) REFL CONFI RM RPR (DX) w/refl titer and confirmatory testing NON-RE ACTIVE non-re active normal Not Available [facility] [place] [facility] [address] [place], [place], [address], 12/15/2022 09:43:52 12/15/19 23 12/15/2022 PROTE IN ELECT RO. protein, total 7.8 g/dL 6.1-8. 1 normal Not Available [facility] [place] [facility] [address] [place], [place], [address], 12/15/2022 12:33:40 12/15/19 23 12/15/2022 PROTE IN ELECT RO. albumin 4.8 g/dL 3.8-4. 8 normal Not Available [facility] [place] [facility] [address], [place], [address], 12/15/2022 12:33:40 12/15/1912/15/2022 PROTE IN ELECT RO. alpha 1 globulin 0.3 g/dL 0.2-0. 3 normal Not Available [facility] [place] [facility] [address] [place], [place], [address], 12/15/2022 12:33:40 12/15/19 23 12/15/2022 PROTE IN ELECT RO. alpha 2 globulin 0.6 g/dL 0.5-0. 9 normal Not Available [facility] [address], [place], [address], 12/15/2022 12:33:40 12/15/19 23 12/15/2022 PROTE IN ELECT RO. beta 1 globulin 0.4 g/dL 0.4-0. 6 normal Not Available [facility] [address], [place], [address], 12/15/2022 12:33:40 12/15/19 23 12/15/2022 PROTE IN ELECT RO. beta 2 globulin 0.4 g/dL 0.2-0. 5 normal Not Available [facility] [address], [place], [address], 12/15/2022 12:33:40 12/15/19 23 12/15/2022 PROTE IN ELECT RO. gamma globulin 1.3 g/dL 0.8-1. 7 normal Not Available [facility] [address], [place], [address], 12/15/2022 12:33:40 12/15/19 23 12/15/2022 PROTE IN ELECT RO. interpretati on Blanquita l Serum Prote in Elect ropduane Harrison rn. No abnor mal prote in bands (M-pr otein ) detec whitley. Not Available [facility] [address], [place], [address], 12/15/2022 12:33:40 12/15/19 23 12/15/2022 KAPPA /BROCK DA W/RAT IO kappa light chain, free, serum 19.3 mg/L 3.3-19 .4 normal Not Available [facility] [address], [place], [address], 12/15/2022 15:23:09 12/15/19 23 12/15/2022 KAPPA /BROCK DA W/RAT IO lambda light chain, free, serum 19.7 mg/L 5.7-26 .3 normal Not Available [facility] [place] [facility] [address] [place], [place], [address], 12/15/2022 15:23:09 12/15/19 23 12/15/2022 KAPPA /BROCK DA W/RAT IO kappa/lambda light chains free with ratio, serum 0.98 0.26-1 .65 normal Free kappa /brock da ratio in serum of blanquita l indiv idual s is 0.26- 1.65. Exces s produ ction of free kappa or lambd a chain s can alter this ratio . Monoc lonal free light chain s are found in serum of patie nts with multi ple myelo ma, Walde nstro m's macro globu linem ia, mu-he jayleen chain disea se, prima ry amylo idosi s, light chain depos ition disea se, monoc lonal gammo guru of undet ermin ed signi fican ce, and lymph oprol ifera tive disor ders. Measu remen t of free light chain rene ntrat ion in serum is usefu l for diagn osis, progn osis, monit oring disea se activ ity and follo wing respo nse to thera py of these disor ders. Not Available [facility] [place] [facility] [address], [place], [address], 12/15/2022 15:23:09 12/15/19 23 12/16/2022 IMMUN OFIXA TION, SERUM avelino interpretati on Blanquita l ally rodriguez. No monoc lonal prote ins detec whitley. Not Available [facility] [place] [facility] [address], [place], [address], 12/16/2022 12:18:10 09/12/17/2022 COPPE R copper 86 mcg/d L 70-175 normal This test was devel oped and its thony tical perfo rmanc e dina cteri stics have been deter mined by [employer] [facility] [place]. It has not been clear ed or appro lupe by the U.S. Food and Drug Admin istra tion. This assay has been valid ated pursu ant to the CLIA regul ation s and is used for clini shady purpo ses. Not Available [facility] [place] [facility] [address], [address], 12/17/2022 16:35:42 12/15/1912/18/2022 METHY L/RAUL CYSTE INE methylmaloni c acid 119 nmol/ L 87-318 normal This test was devel oped and its thony tical perfo rmanc e dina cteri stics have been deter mined by [employer] [facility] [place] . It has not been clear ed or appro lupe by FDA. This assay has been valid ated pursu ant to the CLIA regul ation s and is used for clini shady purpo ses. Not Available [facility] [place] [facility] [address], [address], 12/18/2022 14:29:19 12/15/1912/18/2022 METHY L/RAUL CYSTE INE homocysteine 18.7 umol/ L <11.4 high Homoc ystei ne is incre ased by funct ional defic iency of folat e or vitam in B12. Testi ng for methy lmalo pooja acid diffe renti ates betwe en these defic ienci es. Other cause s of incre ased homoc ystei ne inclu de renal failu re, folat e antag onist s such as metho trexa te and pheny toin, and expos ure to nitro us oxide . Lance Cleary, et al. [facility] Inter n Med. 1999; 131(5 ):331 -9. Not Available [facility] [place] [facility] [address], [place], [address], 12/18/2022 14:29:19 12/15/19 23 12/18/2022 VITAM IN B1,TH IAMIN E vitamin B1 (thiamine), blood, lc/MS/MS 119 nmol/ L 78-185 normal Vitam in suppl ement ation withi n 24 hours prior to blood draw may affec t the accur acy of the resul ts. This test was devel oped and its thony tical perfo rmanc e dina cteri stics have been deter mined by [employer], [place]. It has not been clear ed or appro lupe by the U.S. Food and Drug Admin istra tion. This assay has been valid ated pursu ant to the CLIA regul ation s and is used for clini shady purpo ses. Not Available [facility] [place] [facility] [address], [place], [address], 12/18/2022 15:11:59 12/15/19 23 12/19/2022 VITAM IN B6, PLASM A vitamin B6, plasma 20.8 NG/mL 2.1-21 .7 normal Vitam in suppl ement ation withi n 24 hours prior to blood draw may affec t the accur acy of the resul ts. This test was devel oped and its thony tical perfo rmanc e dina cteri stics have been deter mined by [employer] [facility], [place]. It has not been clear ed or appro lupe by the U.S. Food and Drug Admin istra tion. This assay has been valid ated pursu ant to the CLIA regul ation s and is used for clini shady purpo ses. Not Available [facility] [place] [facility] [address], [place], [address], 12/19/2022 14:40:22 09/1312/14/2022 EMG [facility] Medica l [facility] [address] [place], [address] [facility] nel shultz Report Signed Susan t: Jadon Dumont i rt Medica l Record #: [id number] : 1969 Acct:S [id number] Age/Se x: 52 / M Admit/ Reg Date: Loc: MIRA.EM GEM Room: Report Number : [id number]: Lucía Davis t Name: Fidel OLMOS ID: [id number] Sex: Male Date of : 1969 Referr ing MD: Dr. Lucía Monroe Date of Test: 023 Patiama t Age: 52 Years Height : 5 feet 9 inch Reason for study: 52-yea r-old man with a histor y of predia betes who presen ts with progre ssive bilate ral lower extrem ity numbne ss, pain and parest hesias , that starte d on the right. Examin ation shows length depend ent sensor y defici ts to small more than large fibers . This study is for evalua tion of genera lized axonal and demyel inatin g polyne uropat hy and right lumbos acral radicu lopath y. Sensor y NCS Nerve / Sites Rec. Site Onset Peak [employer] Amp Dist Pablito Temp ms ms ? V cm m/s ? C R Radial - Thumb Forear m Thumb 1.48 1.94 21.2 10 67.6 R Sural - Lat Mall Calf Lat Mall 3.56 4.19 2.0 14 39.3 L Sural - Lat Mall Calf Lat Mall 3.60 4.54 2.3 14 38.8 35 R Superf icial perone al Lat Leg Ankle NR NR NR 12 NR Motor NCS Nerve / Sites Rec. Site Lat Amp Dist Pablito Temp Area Dur. ms mV cm m/s ? C mVms ms R Ulnar - ADM Wrist ADM 2.81 15.0 7 32.2 37.7 5.04 BElias w ADM 6.63 13.2 22 57.7 31.3 35.5 5.27 A.Elbo w ADM 8.58 14.5 10 51.1 31.2 39.7 5.60 R Perone al - EDB Ankle EDB 4.83 3.9 8 30 14.8 7.69 FibHea d EDB 12.67 3.4 32 40.9 30 12.6 12.75 Knee EDB 14.42 3.5 8 45.7 30 13.1 12.83 R Tibial - AH Ankle AH 4.69 13.1 8 30.3 37.8 7.04 Knee AH 17.35 5.4 42 33.2 30.3 22.2 11.02 Nerve Fmin ms R Tibial 66.98 R Perone al 60.05 R Ulnar 26.67 Needle EMG EMG Summar y Table Sponta neous MUAP Activa tion Recrui tment Muscle IA Fib PSW Fasc Other Amp Dur. Phases Patter n Patter n R. Tensor fascia e latae N N N N N N 1+ N N Sl. Reduce d R. Vastus medial is N N N N N N N N N N R. Tibial is anteri or N N N N N 1+ 1+ N N Sl. Reduce d R. Tibial is history tutor ior N N N N N N N N Reduce d ?N R. Gastro cnemiu s (Media l head) N N N N N N N N N N Nerve Conduc tion Studie s: 1. Sensor y conduc tion studie s of the right radial nerve were normal . The right superf icial perone al sensor y nerve respon se was absent . The sural sensor y nerve respon ses had modera tely reduce d amplit udes and normal peak latenc ies bilate rally. 2. Motor conduc tion studie s of the right ulnar and perone al nerve were normal . The right tibial motor respon se had a normal distal amplit ude, normal distal latenc y and mildly slowed conduc tion veloci ty even after correc ting for low limb temper ature; the mildly reduce d amplit ude when stimul ating proxim ally at the knee is favore d to repres ent techni shady artifa ct. 3. The right tibial and perone al F-wave minima l latenc ies were modera tely prolon ged while the right ulnar F-wave was normal . Needle Electr omyogr aphy: Concen tric needle examin ation of select ed proxim al and distal muscle s of the right lower extrem ity was perfor med, as tabula whitley above. There was no abnorm al insert ional or sponta neous activi ty. Motor unit action potent ials (MUAPs ) of long durati on or long durati on and high amplit ude, with reduce d recrui tment patter n were seen in the right TFL and TA. Needle EMG studie s of all other tested muscle s were normal though assess ment of the right tibial is history tutor ior was affect ed by reduce d activa tion relate d to discom fort. IMPRES SONNY: This is an abnorm al study. There is electr ophysi ologic eviden ce to sugges t the presen ce of a genera lized, symmet tomy, length -depen dent, predom inantl y sensor y, predom inantl y axonal polyne uropat hy with featur es of myelin dysfun ction. A mild superi mposed chroni c L5 radicu lopath y withou t active denerv ation is likely on the right. There is no eviden ce of an active L3-S1 radicu lopath y on the right. Micah?aydee Monroe MD, PhD Direct or, Neurop hysiol raman [facility]?s Medica l [place] Abbre iation s: SD = poor relaxa tion; ? = cannot assess ; N = normal ; +1 to +4 = severi ty grades ; CRD = comple x repeti tive discha rge; IA =inser tional activi ty; Fib = fibril lation s; PSW = positi ve sharp waves; Dur = durati on; Amp = amplit ude; MUAP = motor unit action potent ial; NR= no respon se; SNAP = sensor y nerve action potent ial; CMAP = compou nd muscle action potent ial Dictat ed By: Lucía Monroe MD Signed By: Lucía Monroe MD 155 DD/DT: TD/TT: 1549 Transc riptio nist: [email or web address] [id number] cc: PCPNS; [id number] 1* Lucía Monroe MD; unknow n, unknow n [email or web address] [facility] ? Rad [address], [place], [address] 12/14/2022 16:20:08 12/15/19 23 12/14/2022 elect romyo gram + nerve condu ction study No observ ation record ed. [email or web address] Not Available 2022 09:24:50 Result Notes None recorded. Medical Equipment None Reported. Medications Name Sig Start Date Stop Date Status Note LastModified by Organization Details LastModified Time valacyclovir 1 gram tablet TAKE 1 TABLET BY MOUTH EVERY 12 HOURS WITH MEALS FOR 7 DAYS active Not Available Not Available N ot Available cyanocobalam in (vit B-12) 1,000 mcg/mL injection solution INJECT 1 ML SUBCUTANEOU SLY EVERY MONTH active Not Available Not Available No t Available lisinopril 10 mg tablet TAKE 1 TABLET BY MOUTH EVERY DAY active Not Available Not Available No t Available indomethacin 25 mg capsule TAKE 1 CAPSULE BY MOUTH EVERY DAY NEEDED active Not Available Not Available No t Available gabapentin 300 mg capsule TAKE 1 CAPSULE BY MOUTH EVERY NIGHT GRADUALLY INCREASE TO THREE TIMES A DAY TOLERATED active Not Available Not Available No t Available allopurinol 300 mg tablet TAKE 1 TABLET BY MOUTH EVERY DAY active Not Available Not Available No t Available gabapentin 100 mg capsule active Not Available Not Available Not Available doxycycline hyclate 100 mg tablet TAKE 1 TABLET BY MOUTH TWICE DAILY active Not Available Not Available No t Available tadalafil 5 mg tablet TAKE 1 TABLET BY MOUTH EVERY DAY active Not Available Not Available No t Available pregabalin 75 mg capsule TAKE 1 CAPSULE BY MOUTH TWICE DAILY active Not Available Not Available No t Available Vitals None Recorded Social History None recorded. Functional Status None recorded. Mental Status None recorded. Family History Nothing Reported Notes:No family history of n europathy. Mother had foot surgery, was in the back of the foot. Medical History No medical history recorded. 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 Health Concerns Section Related Observation LastModified by Organization Detai ls LastModified Time None Recorded Concern Status LastModified by Organization Details LastModified Time None Recorded Advance Directives Directive None Recorded Payers Insurance Date Sequence Insurance Name Policy Number Policy Oden Covered Member ID Oden Member ID Guarantor Name 04/27/2023 1 [facility] [place] [place] [id number] Fidel Hernandez [id number] Fidel Hernandez Notes Date Note Type Note Provider Name and Address Organization Details Recorded Time 12/14/2022 text/html Mr. 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 He was referred by Dr. Vasquez. His symptoms started about 2 years ago with right foot pain. He saw a affiliate marketing coordinator who gave him an insert. It did not help and the pain persisted. He was diagnosed with Griffith's neuroma. They recommended surgery even though at that time the left foot started to bother him as well. He had surgery on the right foot, but this was complicated by an infection. Then as time progressed both feet started bothering him all the time. The main symptom is pain like putting both feet in a beehive and setting them up on fire . The pain is constant. Taking shoes off sometimes help, but sometimes make things worse. When the feet get cold the pain is worse. The pain is on top and bottom of the feet and lately up to above the ankles. It will wake him up at night. When it first started it was more focal in the first web of the toes but it has has gone up to above the ankles slowly over time. He tried gabapentin, did not help. Pregabalin 25mg BID did not work. When he takes 50mg at night he can sleep. No symptoms in the arms or hands. When he sleeps at night on his back the left D4-D5 can get numb. No back pain or neck pain. No dry eyes or dry mouth. No rashes or joint pain. No rheumatologic diagnosis except for gout. He was evaluated by Dr. Vasquez. Workup is summarized below but workup was notable for EMG/NCS with some slowing of lower extremity conduction velocities and bloodwork with an A1c in the prediabetes range. WORKUP:----- Bloodwork -----Last A1c was 6%. about 1 year ago per patient11/2022: Normal or negative Ro/La,paraneoplastic panel, ANCA, ganglioside antibodies, SPEPPositive LAUREN 1:40 speckled 12/2022: Normal or negative TSH, HCV, B12 324, folate 13.3, RPR, SPEP, immunofixation, copper, B1, B6, MMA. Mildly elevated homocysteine 18.7. ----- EMG/NCS -----EMG/NCS 11/2022 (Dr. Vasquez) reported as showing some slowing of conduction velocities though actual data not available to my review. EMG/NCS 12/2022 ([facility])IMPRESSION:This is an abnormal study. There is electrophysiologic evidence to suggest the presence of a generalized, symmetric, length-dependent, predominantly sensory, predominantly axonal polyneuropathy with features of myelin dysfunction.A mild superimposed chronic L5 radiculopathy without active denervation is likely on the right.There is no evidence of an active L3-S1 radiculopathy on the right. Gonzales Monroe MD, PhD [address] [place] [address], [id number], [facility] 12/31/2022 10:36:49
[2024-09-13 18:01] LABS: MANUAL DIFF FLAG NO
[2024-09-13 18:12] LABS: Basophils Absolute Auto 0.1 X10*3/uL (0.0-0.2); Basophils Percent Auto 0.7 % (0-2); Eosinophils Absolute Auto 0.1 X10*3/uL (0.0-0.4); Eosinophils Percent Auto 1.8 % (0-4); Estimated Average Glucose 85 mg/dL; Hematocrit 37.6 % (42.0-52.0); Hemoglobin 13.7 g/dl (14.0-18.0); Hemoglobin A1c % 4.6 % (<6.0); Imm Gran Abs Auto 0.03 X10*3/uL (0.00-0.03); Imm Gran Pct Auto 0.4 % (0.0-0.4); Lymphocytes Percent Auto 29.8 % (20-40); Mean Corpuscular HGB Conc 36.4 g/dl (31.0-36.0); Mean Corpuscular Hemoglobin 33.6 pg (27.0-33.0); Mean Corpuscular Volume 92.2 fL (80.0-98.0); Mean Platelet Volume 10.5 fL (9.4-12.4); Monocytes Absolute Auto 0.9 X10*3/uL (0.1-1.2); Monocytes Percent Auto 12.6 % (2-11); Neutrophils Absolute Auto 3.7 x10*3/uL (2.0-8.3); Neutrophils Percent Auto 54.7 % (45-73); Platelet Count 194 X10*3/uL (160-400); Red Blood Count 4.08 X10*6/uL (4.60-5.80); Red Cell Distribution Width 12.6 % (11.0-16.0); Total Hemoglobin (HGBA1C) 3536.4128 umol/L; White Blood Count 6.8 X10*3/uL (4.8-10.8)
[2024-09-13 18:19] LABS: Alanine Aminotransferase 39 U/L (0-40); Albumin Level 4.7 g/dL (3.5-5.0); Alkaline Phosphatase 78 U/L (39-117); Anion Gap 12 (12-20); Aspartate Amino Transferase 48 U/L (5-37); Bilirubin Total 0.8 mg/dL (0.0-1.0); Blood Urea Nitrogen 7 mg/dL (9-16); Calcium 10.1 mg/dL (8.4-10.2); Carbon Dioxide 27 mmol/L (22-29); Chloride 104 mmol/L (96-108); Cholesterol 147 mg/dL (<200); Estimated Glomerular Filt Rate > 60; Glucose Random 101 mg/dL (60-115); HDL Cholesterol 62 mg/dL (>40); LDL Cholesterol Calculated 75 mg/dL (<100); Potassium 4.9 mmol/L (3.3-5.1); Sodium 138 mmol/L (135-145); Triglycerides 54 mg/dL (<150); Uric Acid 3.1 mg/dL (3.4-7.0)
== END 2024-09-13 16:09 | disposition home or self-care (01) ==
LOC: HO.MANLDS 16:08
PROVIDERS: Visit Provider Physician Assistant
DX: E11.9 Type 2 diabetes mellitus without complications (principal); M10.9 Gout, unspecified
CPT/HCPCS: 36415; 80053; 80061; 83036; 84550; 85025

== ENCOUNTER 2024-09-27 10:08 | Outpatient (REF) | payer OTHER, SELFPAY ==
--- NOTE | ~2024-09-27 | XR_ITS ---
CLINICAL HISTORY: ACUTE BILATERAL LOW BACK PAIN --- Additional Notes or Special Instructions: WO Lumbar spine four views Comparison: None provided Findings: No acute fracture or dislocation. Posterior alignment is normal. Moderate lower degenerative change. No radiopaque foreign bodies. Impression: No acute processes This document has been electronically signed by: Olegario Adair MD on 09/28/2024 20:10:51
--- OUTSIDE RECORDS SUMMARY | 2024-09-27 10:46 | XMS_ITS | Data Portability ---
Author Organization [facility] _[facility] Address [address] [address] Care Team Providers Care Farm Loan Representative Name Role Phone ANABELLA BRAY Primary Care Provider [phone] KAUSHAL VASQUEZ Neurologist Assessment Encounter Date Assessment [...] history and performing an examination through a fjub-yo-zebn encounter, counseling and educating the patient, ordering tests, communicating with other health care prowviders, documenting clinical information and coordinating care for all problems noted above. [email or web address] Not available 12/31/2022 10:36:03 Plan of Treatment Reminders Order Date Submit Date Provider Last Modified By Organization Details Last Modified Time Details Appointments None recorded. Lab hepatitis C virus Ab, serum 2022 023 [employer] [facility], [address] [place] [address], [phone], 3 06:52:30 vitamin B6 (pyridoxine ), plasma 2022 023 [employer] [facility], [address] [place] [address], [phone], 3 14:40:22 protein electrophor esis panel, serum or plasma 2022 023 [employer] [facility], [address] [place] [address], [phone], 3 12:33:40 immunofixat ion, serum 2022 023 [employer] [facility], [address] [place] [address], [id number], 3 12:18:10 kappa + lambda light chains, free + ratio, quantitativ e, serum [address] [facility], [address], [address] [facility], [place], [address], 3 15:23:09 vitamin B1 (thiamine), blood 2022 023 [facility], [address], [place] [address], [place], [address], 3 15:11:59 vitamin B12 + folate, serum or blood [address] [facility] [facility], [address], [place] [address], [place], [address], 3 09:43:51 mma (methylmalo pooja acid), serum [address] [facility] [facility], [address], [place] [address], [place], [address], 3 14:29:19 TSH, serum or plasma [address] [facility], [address], [address] [facility], [place], [address], 3 06:52:29 RPR (rapid plasma reagin), serum 2022 023 [facility], [address], [address] [facility], [place], [address], 3 09:43:52 copper, serum or plasma 2022 023 [facility], [address], [place] [address], [place], [address], 3 16:35:43 Referral None recorded. Procedures None [...] 1.88 mIU/L 0.40-4 .50 normal Not Available [facility] [place] [facility] [address], [address], 12/15/2022 06:52:29 12/15/19 23 12/15/2022 HEP C AB W/REF L HCV hepatitis C antibody NON-RE ACTIVE non-re active normal HCV antib evelyne was non-r eacti ve. There is no labor atory evide nce of HCV infec tion. In most cases , no furth er actio n is requi red. Howev er, if recen t HCV expos ure is suspe cted, a test for HCV RNA (test code 26183 ) is sugge sted. For addit ional infor taryn n pleas e refer to http: //[facility] catmegan n.que stdia gnost ics.c om/fa q/FAQ 22v1 (This link is being provi ded for infor taryn gabriel/ educa davon l purpo ses only. ) Not Available [facility] [place] [facility] [address], [address], 12/15/2022 06:52:30 12/15/1912/15/2022 VIT B12/F OLATE ,SERU [...] have sympt oms. Not Available [facility] [place] [facility] [address] [place], [place], [address], 12/15/2022 09:43:51 12/15/1912/15/2022 VIT B12/F OLATE ,SERU M folate, serum 13.3 NG/mL normal Refer ence Range Low: <3.4 Borde rline : 3.4-5 .4 Blanquita l: >5.4 Not Available [facility] [place] [facility] [address] [place], [place], [address], 12/15/2022 09:43:51 12/15/1912/15/2022 RPR(D X) REFL CONFI RM RPR (DX) w/refl titer and confirmatory testing NON-RE ACTIVE non-re active normal Not Available [facility] [place] [facility] [address] [place], [place], [address], 12/15/2022 09:43:52 12/15/1912/15/2022 PROTE IN ELECT RO. protein, total 7.8 g/dL 6.1-8. 1 normal Not Available [facility] [place] [facility] [address] [place], [place], [address], 12/15/2022 12:33:40 12/15/19 23 12/15/2022 PROTE IN ELECT RO. albumin 4.8 g/dL 3.8-4. 8 normal Not Available [facility] [place] [facility] [address] [place], [place], [address], 12/15/2022 12:33:40 12/15/1912/15/2022 PROTE IN ELECT RO. alpha 1 globulin 0.3 g/dL 0.2-0. 3 normal Not Available [facility] [place] [facility] [address] [place], [place], [address], 12/15/2022 12:33:40 12/15/19 23 12/15/2022 PROTE IN ELECT RO. alpha 2 globulin 0.6 g/dL 0.5-0. 9 normal Not Available [facility] [address], [place], [address], 12/15/2022 12:33:40 12/15/19 23 12/15/2022 PROTE IN ELECT RO. beta 1 globulin 0.4 g/dL 0.4-0. 6 normal Not Available [facility] [address], [place], [address], 12/15/2022 12:33:40 12/15/19 23 12/15/2022 PROTE IN ELECT RO. beta 2 globulin 0.4 g/dL 0.2-0. 5 normal Not Available [facility] [address], [place], [address], 12/15/2022 12:33:40 12/15/19 23 12/15/2022 PROTE IN ELECT RO. gamma globulin 1.3 g/dL 0.8-1. 7 normal Not Available [facility] [address], [place], [address], 12/15/2022 12:33:40 12/15/19 23 12/15/2022 PROTE IN ELECT RO. interpretati on Blanquita l Serum Prote in Elect ropduane Harrison rn. No abnor mal prote in bands (M-pr otein ) detec whitley. Not Available [facility] [address], [address], 12/15/2022 12:33:40 12/15/19 23 12/15/2022 KAPPA /BROCK DA W/RAT IO kappa light chain, free, serum 19.3 mg/L 3.3-19 .4 normal Not Available [facility] [address] [place], [address], 12/15/2022 15:23:09 12/15/19 23 12/15/2022 KAPPA /BROCK DA W/RAT IO lambda light chain, free, serum 19.7 mg/L 5.7-26 .3 normal Not Available [facility] [place] [facility] [address] [place], [place], [address], 12/15/2022 15:23:09 12/15/19 23 12/15/2022 KAPPA /BROCK [...] these disor ders. Not Available [facility] [place] [facility] [address], [place], [address], 12/15/2022 15:23:09 12/15/1912/16/2022 IMMUN OFIXA TION, SERUM avelino interpretati on Blanquita l ally rn. No monoc lonal prote ins detec whitley. Not Available [facility] [place] [facility] [address], [place], [address], 12/16/2022 12:18:10 12/15/19 23 12/17/2022 COPPE R copper 86 mcg/d L 70-175 normal This test was devel oped and its thony tical perfo rmanc e dina cteri stics have been deter mined by [facility] [place], [place]. It has not been clear ed or appro lupe by the U.S. Food and Drug Admin istra tion. This assay has been valid ated pursu ant to the CLIA regul ation s and is used for clini shady purpo ses. Not Available [facility] [place] [facility] [address], [address], 12/17/2022 16:35:42 12/15/1912/18/2022 METHY L/RAUL CYSTE INE methylmaloni c acid 119 nmol/ L 87-318 normal This test was devel oped and its thony tical perfo rmanc e dina cteri stics have been deter mined by [facility] [place] . It has not been clear ed or appro lupe by FDA. This assay has been valid ated pursu ant to the CLIA regul ation s and is used for clini shady purpo ses. Not Available [facility] [place] [facility] [address], [address], 12/18/2022 14:29:19 12/15/1912/18/2022 METHY L/RAUL CYSTE INE [...] 131(5 ):331 -9. Not Available [facility] [place] [facility] [address], [place], [address], 12/18/2022 14:29:19 12/15/1912/18/2022 VITAM IN B1,TH IAMIN E vitamin B1 (thiamine), blood, lc/MS/MS 119 nmol/ L 78-185 normal Vitam in suppl ement ation withi n 24 hours prior to blood draw may affec t the accur acy of the [facility] ts. This test was devel oped and its thony tical perfo rmanc e dina cteri stics have been deter mined by [employer] [employer] [facility], [place]. It has not been clear ed or appro lupe by the U.S. Food and Drug Admin istra tion. This assay has been valid ated pursu ant to the CLIA regul ation s and is used for clini shady purpo ses. Not Available [facility] [place] [facility] [address], [address], 12/18/2022 15:11:59 12/15/1912/19/2022 VITAM IN B6, PLASM A vitamin B6, plasma 20.8 NG/mL 2.1-21 .7 normal Vitam in suppl ement ation withi n 24 hours prior to blood draw may affec t the accur acy of the [facility] ts. This test was devel oped and its thony tical perfo rmanc e dina cteri stics have been deter mined by [employer] [place]. It has not been clear ed or appro lupe by the U.S. Food and Drug Admin istra tion. This assay has been valid ated pursu ant to the CLIA regul ation s and is used for clini shady purpo ses. Not Available [facility] [place] [facility] [address] [place], [address], 12/19/2022 14:40:22 12/15/19 23 12/14/2022 EMG Justin Marr [facility] Medica l [facility] [address] [place], [address] [facility] nel shultz Report Signed Susan t: Jadon Dumont i rt Medica l Record #: [id number] : 1969 Acct:S [id number] Age/Se x: 52 / M Admit/ Reg Date: Loc: MIRA.EM GEM Room: Report Number : [id number]: Lucía Davis t Name: Fidel OLMOS ID: [id number] Sex: Male Date of : 1969 [...] Nerve / Sites Rec. 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 ms mV cm m/s C mVms ms R Ulnar - ADM Wrist ADM 2.81 15.0 7 32.2 37.7 5.04 B.Elbo w ADM 6.63 13.2 22 57.7 31.3 [...] N Sl. Reduce d R. 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 Micah Monroe MD, PhD Direct or, Neurop [facility]ysiol [facility] Medica l [place] Abbre iation s: [place] = poor relaxa tion; ? = cannot [...] Monroe MD Signed By: Lucía Monroe MD 1551 DD/DT: TD/TT: 1549 Transc riptio nist: [facility] 01 cc: PCPNS; SLAMI0 1* Lucía Monroe MD; unknow n, unknow n [email or web address] 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 Health Concerns Section Related Observation LastModified by Organization Detai ls LastModified Time None Recorded Concern Status LastModified by Organization Details LastModified Time None Recorded Advance Directives Directive None Recorded Payers Insurance Date Sequence Insurance Name Policy Number Policy Oden Covered Member ID Oden Member ID Guarantor Name 04/27/2023 1 BC-[place]: [facility] [id number] Fidel Hernandez [id number] Fidel Hernandez Notes Date Note Type Note Provider Name and Address Organization Details Recorded Time 12/14/2022 text/html 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 He was referred by Dr. Vasquez. His symptoms started about 2 years ago with right foot pain. He saw a toddler nanny who gave him an insert. It did [...] not available to my review. EMG/NCS 12/2022 ([facility])IMPRESSION:This is an abnormal study. There is electrophysiologic evidence to suggest the presence of a generalized, symmetric, length-dependent, predominantly sensory, predominantly axonal polyneuropathy with features of myelin dysfunction.A mild superimposed chronic L5 radiculopathy without active denervation is likely on the right.There is no evidence of an active L3-S1 radiculopathy on the right. Gonzales Monroe MD, PhD [address] [place], [address], [facility] 12/31/2022 10:36:49
== END 2024-09-27 10:09 | disposition home or self-care (01) ==
LOC: HO.XRAY 10:08
PROVIDERS: PCP Internal Medicine; Visit Provider Physician Assistant
DX: M54.50 Low back pain, unspecified (principal)
CPT/HCPCS: 72100

== ENCOUNTER → 2024-09-27 10:12 | Outpatient (BNV) | payer OTHER, SELFPAY | PROVIDERS: PCP Internal Medicine; Visit Provider Radiology Diagnostic Radiology | DX: M54.50 Low back pain, unspecified (principal) | CPT/HCPCS: 72100 ==

== ENCOUNTER 2025-03-31 16:08 | Outpatient (REF) | payer OTHER, SELFPAY ==
--- OUTSIDE RECORDS SUMMARY | 2025-03-31 17:55 | XMS_ITS | Encounter Summary ---
Author Organization [facility] Address [address] [place] [address] Phone Care Team Providers Care Medical Record Librarians Teacher Name Role Phone Keith Margarito Goss DO Primary Care Provider [phone] Margarito Parker DO Unavailable Keith, Margarito Goss DO Primary Care Provider [phone] Encounter Details Date Type Department Care Team (Late st Contact Info) Description 09/03/2021 Transcribe Orders Virtual Department [address] [place] [address] Margarito Parker DO [address] [facility] [place] [address] [place] [address] Cellulitis of right lower limb (Primary Dx) Social History Tobacco Use Types Packs/Day Years Used Date Smoking Tobacco: Never Assessed Sex and Gender Information Value Date Recorded Sex Assigned at Male 08/25/2021 4:10 PM EDT Legal Sex Male 9:32 PM EDT Gender Identity Male 08/25/2021 4:10 PM EDT Sexual Orientation Not on file documented as of this encounter Plan of Treatment Not on file documented as of this encounter Visit Diagnoses Diagnosis Cellulitis of right lower limb- Primary documented in this encounter Care Teams Medical Record Librarians Teacher Relationship Specialty Start Date End Date Margarito Parker DO PCP - General 01/16/17 09/19/24 Margarito Parker DO [address] [place] [address] PCP - General Internal Medicine 09/20/24 Margarito Parker DO [address] [place] [address] Insurance Assigned Provider 07/08/23 07/07/24 documented as of this encounter Additional Source Comments The information contained in this document represents components of the legal health record. It is not the complete legal health record.[facility]
--- OUTSIDE RECORDS SUMMARY | 2025-03-31 17:55 | XMS_ITS | Data Portability ---
Author Organization [facility] _[facility] Address [address] [address] Care Team Providers Care Hub Cutter Apprentice Name Role Phone ANABELLA BRAY Primary Care [...] history and performing an examination through a tyon-fj-ooez encounter, counseling and educating the patient, ordering tests, communicating with other health care prowviders, documenting clinical information and coordinating care for all problems noted above. [email or web address] Not available 12/31/2022 10:36:03 Plan of Treatment Reminders Order Date Submit Date Provider Last Modified By Organization Details Last Modified Time Details Appointments None recorded. Lab hepatitis C virus Ab, serum 2022 023 [employer] [facility], [address] [place] [address], [phone], 3 06:52:30 vitamin B6 (pyridoxine ), plasma 2022 023 [employer] [facility], [address] [place] [address], [phone], 3 14:40:22 protein electrophor esis panel, serum or plasma 2022 023 [employer] [facility], [address] [place] [address], [phone], 3 12:33:40 immunofixat ion, serum 2022 023 [employer] [facility], [address] [place] [address], [id number], 3 12:18:10 kappa + lambda light chains, free + ratio, quantitativ e, serum 2022 023 [employer] [facility], [address] [address], [address] [facility], [place], [address], 3 15:23:09 vitamin B1 (thiamine), blood 2022 023 [facility], [address], [place] [address], [place], [address], 3 15:11:59 vitamin B12 + folate, serum or blood 2022 023 GILBERT [employer] [facility], [address], [place] [address], [place], [address], 3 09:43:51 mma (methylmalo pooja acid), serum 2022 023 GILBERT [employer] [facility], [address] [address] [facility], [place] [address], [place], [address], 3 14:29:19 TSH, serum or plasma 2022 023 GILBERT [employer] [facility], [address] [address] [facility], [address] [facility], [place], [address], 3 06:52:29 RPR (rapid plasma reagin), serum 2022 023 [facility], [address] [address], [address] [facility], [place], [address], 3 09:43:52 copper, serum or plasma 2022 023 [facility], [address] [address], [place] [address], [place], [address], 3 16:35:43 Referral None recorded. Procedures None [...] 1.88 mIU/L 0.40-4 .50 normal Not Available [facility] [place] [facility] [address], [address], 12/15/2022 06:52:29 12/15/1912/15/2022 HEP C AB W/REF [...] a test for HCV RNA (test code 72568 ) is sugteri orosco. For addit ional infor taryn n pleas e refer to http: //[facility] cent[facility]egan n.que stdia gnost ics.c om/fa q/FAQ 22v1 (This link is being provi ded for infor taryn gabriel/ educa davon l purpo ses only. ) Not Available [facility] [place] [facility] [address], [place], [address], 12/15/2022 06:52:30 12/15/1912/15/2022 VIT B12/F OLATE ,SERU [...] have sympt oms. Not Available [facility] [place] [facility] [address] [place], [place], [address], 12/15/2022 09:43:51 12/15/1912/15/2022 VIT B12/F OLATE ,SERU M folate, serum 13.3 NG/mL normal Refer ence Range Low: <3.4 Borde rline : 3.4-5 .4 Blanquita l: >5.4 Not Available [facility] [place] [facility] [address] [place], [place], [address], 12/15/2022 09:43:51 12/15/1912/15/2022 RPR(D X) REFL CONFI RM RPR (DX) w/refl titer and confirmatory testing NON-RE ACTIVE non-re active normal Not Available [facility] [place] [facility] [address] [place], [place], [address], 12/15/2022 09:43:52 12/15/1912/15/2022 PROTE IN ELECT RO. protein, total 7.8 g/dL 6.1-8. 1 normal Not Available [facility] [place] [facility] [address] [place], [place], [address], 12/15/2022 12:33:40 12/15/19 23 12/15/2022 PROTE IN ELECT RO. albumin 4.8 g/dL 3.8-4. 8 normal Not Available [facility] [place] [facility] [address] [place], [place], [address], 12/15/2022 12:33:40 12/15/1912/15/2022 PROTE IN ELECT RO. alpha 1 globulin 0.3 g/dL 0.2-0. 3 normal Not Available [facility] [place] [facility] [address] [place], [place], [address], 12/15/2022 12:33:40 12/15/19 23 12/15/2022 PROTE IN ELECT RO. alpha 2 globulin 0.6 g/dL 0.5-0. 9 normal Not Available [facility] [place] [facility] [address], [place], [address], 12/15/2022 12:33:40 12/15/19 23 12/15/2022 PROTE IN ELECT RO. beta 1 globulin 0.4 g/dL 0.4-0. 6 normal Not Available [facility] [place] [facility] [address], [place], [address], 12/15/2022 12:33:40 12/15/19 23 12/15/2022 PROTE IN ELECT RO. beta 2 globulin 0.4 g/dL 0.2-0. 5 normal Not Available [facility] [address], [place], [address], 12/15/2022 12:33:40 12/15/19 23 12/15/2022 PROTE IN ELECT RO. gamma globulin 1.3 g/dL 0.8-1. 7 normal Not Available [facility] [place] [facility] [address], [place], [address], 12/15/2022 12:33:40 12/15/19 23 12/15/2022 PROTE IN ELECT RO. interpretati on Blanquita l Serum Prote in Elect apollo Harrison rn. No abnor mal prote in bands (M-pr otein ) detec whitley. Not Available [facility] [address], [place], [address], 12/15/2022 12:33:40 12/15/19 23 12/15/2022 KAPPA /BROCK DA W/RAT IO kappa light chain, free, serum 19.3 mg/L 3.3-19 .4 normal Not Available [facility] [address], [address], 12/15/2022 15:23:09 12/15/19 23 12/15/2022 KAPPA /BROCK DA W/RAT IO lambda light chain, free, serum 19.7 mg/L 5.7-26 .3 normal Not Available [facility] [place] [facility] [address], [place], [address], 12/15/2022 15:23:09 12/15/19 23 12/15/2022 KAPPA /BROCK [...] these disor ders. Not Available [facility] [place] [facility] [address], [place], [address], 12/15/2022 15:23:09 12/15/19 23 12/16/2022 IMMUN OFIXA TION, SERUM avelino interpretati on Blanquita l ally rn. No monoc lonal prote ins detec whitley. Not Available [facility] [address], [place], [address], 12/16/2022 12:18:10 12/15/19 23 12/17/2022 COPPE R copper 86 mcg/d L 70-175 normal This test was devel oped and its thony tical perfo rmanc e dina cteri stics have been deter mined by [facility]. It has not been clear ed or appro lupe by the U.S. Food and Drug Admin istra tion. This assay has been valid ated pursu ant to the CLIA regul ation s and is used for clini shady purpo ses. Not Available [facility] [place] [facility] [address], [address], 12/17/2022 16:35:42 12/15/19 23 12/18/2022 METHY L/RAUL CYSTE INE methylmaloni c acid [...] for clini shady purpo ses. Not Available [facility] [place] [facility] [address], [address], 12/18/2022 14:29:19 12/15/19 23 12/18/2022 METHY L/RAUL CYSTE INE homocysteine 18.7 umol/ [...] 131(5 ):331 -9. Not Available [facility] [place] [facility] [address], [address], 12/18/2022 14:29:19 12/15/19 23 12/18/2022 VITAM IN B1,TH IAMIN E vitamin B1 (thiamine), blood, lc/MS/MS 119 nmol/ L 78-185 normal Vitam in suppl ement ation withi n 24 hours prior to blood draw may affec t the accur acy of the resul ts. This test was devel oped and its thony tical perfo rmanc e dina cteri stics have been deter mined by [facility] [place], [place]. It has not been clear ed or appro lupe by the U.S. Food and Drug Admin istra tion. This assay has been valid ated pursu ant to the CLIA regul ation s and is used for clini shady purpo ses. Not Available [facility] [place] [address], [address], 12/18/2022 15:11:59 12/15/19 23 12/19/2022 VITAM IN B6, PLASM A vitamin B6, plasma 20.8 NG/mL 2.1-21 .7 normal Vitam in suppl ement ation withi n 24 hours prior to blood draw may affec t the accur acy of the resul ts. This test was devel oped and its thony tical perfo rmanc e dina cteri stics have been deter mined by [facility], [place]. It has not been clear ed or appro lupe by the U.S. Food and Drug Admin istra tion. This assay has been valid ated pursu ant to the CLIA regul ation s and is used for clini shady purpo ses. Not Available [facility] [place] [facility] [address], [address], 12/19/2022 14:40:22 12/15/19 23 12/14/[address]22 [facility] [address] [place], [address] [facility] Report Signed Susan t: Jadon Dumont i rt Medica l Record #: [id number] : 1969 Acct:S [id number] Age/Se x: 52 / M Admit/ Reg Date: Loc: MIRA.EM GEM Room: Report Number : [id number]: Lucía Davis t Name: Fidel OLMOS ID: [id number] Sex: Male Date of : 1969 [...] Nerve / Sites Rec. 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 Reduce d R. 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 = cannot [...] 1551 DD/DT: TD/TT: 1549 Transc riptio nist: SEMW 01 cc: PCPNS; SLAMI0 1* Lucía Monroe MD; unknow n, unknow n [email or web address] [facility] [address] [facility] [address], [place], [address] 12/14/2022 16:20:08 12/15/19 23 12/14/2022 elect romyo [...] Diagnosis SNOMED-CT Code Diagnosis ICD10 Code Diagnosis IMO Codes Diagnosis Note [id number] Gonzales Monroe MD, PhD [facility] [address] [place] [address] 12/14/2022 10:09:19 12/14/2022 10:48:44 Small fiber neuropathy 104934403 G62.89 E53.1 D51.9 D52.9 E51.9 E03.9 E61.0 Prediabetes 540631764 R7 3.03 Diabetic p eripheral neuropathy 564263981 E11.40 Alcoholic polyneuropathy 4676553 G62.1 Health Concerns Section Related Observation LastModified by Organization Detai ls LastModified Time None Recorded Concern Status LastModified by Organization Details LastModified Time None Recorded Advance Directives Directive None Recorded Payers Insurance Date Sequence Insurance Name Policy Number Policy Oden Covered Member ID Oden Member ID Guarantor Name 04/27/2023 1 [facility] [id number] Fidel Hernandez [id number] Fidel Hernandez Notes Date Note Type Note Provider Name and Address Organization Details Recorded Time 12/14/2022 text/html 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 He was referred by Dr. Vasquez. His symptoms started about 2 years ago with right foot pain. He saw a boat washer who gave him an insert. It did [...] not available to my review. EMG/NCS 12/2022 ([facility])IMPRESSION:This is an abnormal study. There is electrophysiologic evidence to suggest the presence of a generalized, symmetric, length-dependent, predominantly sensory, predominantly axonal polyneuropathy with features of myelin dysfunction.A mild superimposed chronic L5 radiculopathy without active denervation is likely on the right.There is no evidence of an active L3-S1 radiculopathy on the right. Gonzales Monroe MD, PhD [address] [place] [address], [phone], [facility] 12/31/2022 10:36:49
--- OUTSIDE RECORDS SUMMARY | 2025-03-31 17:55 | XMS_ITS | Patient Health Record ---
Author Organization [facility] Address [address] [place] [address] Care Team Providers Care Splitting Machine Operator Helper Name Role Phone Keith BANGURA, Margarito Primary Care Provider Joanne Grier Unavailable [phone] Allergies No Known Allergies Reason For Referral No Information Medications Medication SIG (Take, Route, Fr equency, Duration) Notes Start Date End Date Status Pregabalin 100 MG 1 capsule Orally Once a day Active Allopurinol 300 MG 1 tablet Orally Once a day Active Mounjaro Active Immunizations Vaccine Route Administration Date Status Comme nts Influenza Unknown 01/03/2025 Administered Social History Tobacco Use: Social History Observation Description Date Details (start date - stop date) Never Smoker NA - NA Tobacco use other than smoking: Question Answer Notes Are you an other tobacco user? No Tobacco Control (Standard) Question Answer Notes Tobacco use: Nonsmoker Additional Findings: Tobacco non-user Current no nsmoker AUDIT-C (Standard) Question Answer Notes Did you have a drink containing alcohol in the p ast year? 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 ; Pain in left foot M79.672 and Pain in right foot M79.671 Assessments Encounter Date Diagnosis (ICD Code) Assessment Notes Treatment Notes Treatment Clinical Notes Section Notes 02/03/2025 Neuritis (ICD-10 - M79.2) 02/03/2025 Neuropathy (ICD-10 - G62.9) 02/03/2025 Neurapraxia of lower extremity (ICD-10 - S84.90XA) 02/03/2025 Pain in left foot (ICD-10 - M79.672) 02/03/2025 Pain in right foot (ICD-10 - M79.671) Plan Of Treatment No Information Insurance Providers Payer Name Payer Address Payer Phone Subscriber Number Group Number Insured Name Patient Relationship to Insured Coverage Start Date Coverage End Date [facility] [address] [place] [id number] Fidel Hernandez Self - patient is the insured Medical (General) History Medical History History ICD Code Back,Hip,and Knee pain covid-19 Gout High Blood Pressure Numbness Chicken pox Surgical History Surgery Date(Month/Year) 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
--- OUTSIDE RECORDS SUMMARY | 2025-03-31 17:56 | XMS_ITS | Encounter Summary ---
Author Organization [facility] Address [address] [place] [address] Phone Care Team Providers Care Associate Vice President Name Role Phone Margarito Parker DO Primary Care Provider [phone] Margarito Parker DO Unavailable Margarito Parker DO Primary Care Provider [phone] Reason for Referral * Outpatient Procedure - Closed Specialty Diagnoses / Procedures Referred By Jeffrey madrid Referred To Contact Radiology Diagnoses Other form of dyspnea Procedures Adult Echo TTE Margarito Parker DO Phone: tel: fax: [email or web address] Referral ID Status Reason Start Date Expiration Date Visits Re quested Visits Authorized [id number] Closed 10/02/2023 10/01/2024 1 1 Encounter Details Date Type Department Care Team (Late st Contact Info) Description 10/02/2023 Transcribe Orders Virtual Department [address] [place] [address] Margarito Parker DO [address] [facility] [address] [place], [place] [id number] [email or web address] Other form of dyspnea (Primary Dx) Social History Tobacco Use Types Packs/Day Years Used Date Smoking Tobacco: Never Assessed Education Answer Date Recorded Are you interested in more education? Not on guillermo e 07/29/2022 Are you concerned about learning? Not on file 07/29/2022 No 07/29/2022 No 07/29/2022 Digital Access Answer Date Recorded No 08/29/2022 No 08/29/2022 Reliable internet access at home? Not on file 08/29/2022 Device with a working camera? Not on file Sex and Gender Information Value Date Recorded Sex Assigned at Male 08/25/2021 4:10 PM EDT Legal Sex Male 9:32 PM EDT Gender Identity Male 08/25/2021 4:10 PM EDT Sexual Orientation Not on file documented as of this encounter Plan of Treatment Not on file documented as of this encounter Results * TTE COMPREHENSIVE (10/25/2023 10:00 AM EDT) Body Surface Area 2.04 m2 Height 175 cm Weight 88 kg Systolic BP 152 mmHg Diastolic BP 100 mmHg Left Atrium Dimension Anterior-Posterior 35 15 - 40 mm Aortic Valve Mean Gradient 4 mmHg Aortic Valve Time Velocity Integral 263.0 mm Aortic Valve Peak Velocity 127.0 cm/s Aortic Valve Peak Gradient 6 mmHg Aortic Sinus Diameter 37 <40 mm Ascending Aorta Diameter 32 <36 mm Inferior Vena Cava Diameter 14 <21 mm Interventricular Septum Thickness 9 6 - 11 mm Left Ventricle Internal Diameter End Diastole 48 42 - 58 mm Left Ventricle Internal Diameter End Systole 33 <40 mm Left Ventricular Outflow Tract Diameter 17.0 mm LVOT VTI REST 204.0 mm Left Ventricular Outflow Tract Velocity 1.1 m/s Left Ventricular Outflow Tract Gradient at Rest 4 mmHg Left Ventricular Posterior Wall Thickness 10 6 - 11 mm Ejection Fraction 60 50 - 75 Percent Mitral Valve A Wave Speed 88.3 cm/s Mitral Valve E Wave Speed 69.8 cm/s Right Ventricle Basal Diameter 36 25 - 41 mm Tricuspid Valve Peak Velocity 2.6 m/s Raw LV EF% 53 % Relative Wall Thickness 0.42 0.22 - 0.42 Aortic Valve Prosthetic Peak Gradient 6 mmHg Aortic Valve Prosthetic Mean Gradient 4 mmHg Aortic Valve Sinus Index by BSA 18 mm/m2 Aorta Sinus Index by Height 2.11 cm/m Aorta Sinus CSA index by Height 6.14 cm2/m Ascending Aorta Index 16 mm/m2 Asc Aorta CSA Index by Height 4.59 cm2/m Right Ventricle to Right Atrium Pressure Gradient 27 mmHg Right Ventricle Peak Systolic Pressure (Assuming RAP 10) 37 mmHg MGB CV ECHO TV RVSP (ASSUMING RAP OF 5) 32 mmHg RVSP (Exclusive of RAP) 27 mmHg Ascending Aorta Index 16 mm Aortic Sinus Index 18 mm Ascending Aorta Diameter 16 mm Aortic Valve Sinus Index 1 18 20 - 32 mm AO ASC DIAM BSA INDEX 15.69 Left Atrial Volume Index 22 16 - 34 mL/m2 Right Ventricle Peak Systolic Pressure 30 mmHg Left Ventricle Ea Lateral Wave Speed 9.0 cm/s Right Ventricle TAPSE 26 >=17 mm MV E/E' Tissue Velocity Lateral 7.76 Right Ventricle Pulse Doppler S Wave 14.5 >=9.5 cm/s Left Ventricle E Wave Speed 69.8 cm/s Left Ventricle A Wave Speed 88.3 cm/s MV E/A ratio 0.8 Left Ventricle Ea Septal Wave Speed 6.6 cm/s MV E/e' septal 10.58 Left Ventricle E/e' Average 9.2 Left Atrial Volume 45 mL Left Atrial Volume Index by Height 26 mL/m Right Atrium Area 10 cm2 Right Atrium Area index 5 cm2/m2 Right Atrium Pressure Estimated 3 mmHg Echo E/Ea 10.58 Anatomical Region Laterality Modality Heart Ultrasound Narrative 10/25/2023 10:18 AM EDT Normal LV size and function EF 60%. Normal PA pressure estimation. Normal RV size and function. Normal diastolic function. No significant valvular heart disease seen. No clear cardiac cause for shortness of breath seen on this study. Left Ventricle The left ventricle is normal in size. There is normal wall thickness. There is normal left ventricular systolic function. The LV ejection fraction is 60% (calculated via the single dimension method). There are no wall motion abnormalities. LV diastolic function appears within normal limits for age. The e' septal wave velocity is 6.6 cm/s. The e' lateral wave velocity is 9.0 cm/s. The average E/e' ratio is 9.2. Right Ventricle The right ventricle is normal in size. The RV basal dimension is 36 mm. There is normal right ventricular systolic function. TAPSE is 26 mm. RV S' wave is 14.5 cm/s. Left Atrium The left atrium is normal in size. The left atrial anterior-posterior dimension is 35 mm. The left atrial volume index by BSA is 22 mL/m2. There are normal flow patterns in the pulmonary vein. Right Atrium The right atrium is normal in size. The right atrial area is 10 cm2. The IVC is normal in size with normal inspiratory collapse. The IVC diameter is 14 mm. Mitral Valve The mitral valve appears normal. There is no mitral stenosis. There is trace mitral regurgitation. Tricuspid Valve The tricuspid valve appears normal. There is no tricuspid stenosis. There is trace tricuspid regurgitation. The RV systolic pressure was calculated at 30 mmHg (using TR peak velocity of 2.6 m/s and assuming an RA pressure of 3 mmHg). Normal pulmonary pressure. Aortic Valve The aortic valve is tricuspid. There is no aortic stenosis. There is no aortic regurgitation. The visualized portions of the thoracic aorta appear normal in size. Pulmonic Valve The pulmonic valve appears normal. There is no pulmonic stenosis. There is trace pulmonic regurgitation. Pericardium There is no pericardial effusion. General Findings Technically adequate echocardiogram. Technique(s) used in the evaluation: Color flow Doppler and Spectral Doppler. The predominant rhythm during the study was sinus. Comparison Findings There are no prior studies for comparison. IAS/IVS The interatrial septum appears normal. Margarito Parker DO CV ECHO ORDERABLES Final Result documented in this encounter Visit Diagnoses Diagnosis Other form of dyspnea- Primary Other form of dyspnea documented in this encounter Care Teams Associate Vice President Relationship Specialty Start Date End Date Margarito Parker DO PCP - General 01/16/17 09/19/24 Margarito Parker DO [address] [place] [address] PCP - General Internal Medicine 09/20/24 Margarito Parker DO [address] [place] [address] Insurance Assigned Provider 07/08/23 07/07/24 documented as of this encounter Additional Source Comments The information contained in this document represents components of the legal health record. It is not the complete legal health record.[facility]
--- OUTSIDE RECORDS SUMMARY | 2025-03-31 17:56 | XMS_ITS | Data Portability ---
Author Organization [facility], Telehealth Patient Home Address [address] [place] [address] Assessment Encounter Date Assessment Date Assessment LastModified by Organization Details LastModified Time 12/15/2023 12/15/2023 [id number] [place] [id number] (CAREER AND GUIDANCE COUNSELOR) : MDM LOW MUST MEET 2 OF 3 ELEMENTS: PROBLEMS, DATA OR RISK ELEMENT 1: PROBLEMS ADDRESSED (LOW): 2 OR MORE SELF-LIMITED OR MINOR PROBLEMS OR 1 STABLE CHRONIC ILLNESS OR 1 ACUTE UNCOMPLICATED ILLNESS OR INJURY ELEMENT 2: DATA TO BE REVISED AND ANALYZED (LOW) MUST MEET 1 OF 2 CATEGORIES: CATEGORY 1. REVIEW OF PRIOR EXTERNAL NOTES/RESULTS, ORDERING OF TEST(S) CATEGORY 2. ASSESSMENT REQUIRING INDEPENDENT HISTORIAN(S) INCLUDE WHO THE HISTORIAN IS AND RELATION TO PT AND WHY PT IS UNABLE TO GIVE COMPLETE HISTORY ELEMENT 3: RISK (LOW) RISK OF COMPLICATIONS AND/OR MORBIDITY OR MORTALITY OF PATIENT MANAGEMENT PROVIDER MUST THOROUGHLY DOCUMENT ALL OF THE ELEMENTS COVERED Not available 12/15/2023 12:40:30 03/31/2025 03/31/2025 [id number] [place] [id number] (CAREER AND GUIDANCE COUNSELOR) MDM MODERATE MUST MEET 2 OUT OF 3 ELEMENTS: PROBLEMS, DATA OR RISK ELEMENT 1: PROBLEMS ADDRESSED 1 OR MORE CHRONIC ILLNESS WITH EXACERBATION OR 2 OR MORE STABLE CHRONIC ILLNESSES OR 1 UNDIAGNOSED NEW PROBLEM OR 1 ACUTE ILLNESS W/SYMPTOMS OR 1 ACUTE COMPLICATED INJURY ELEMENT 2: DATA MUST MEET 1 OF 3 CATEGORIES CATEGORY 1: REVIEW OF PRIOR EXTERNAL NOTES, REVIEW OF RESULTS, ORDERING OF EACH TEST, ASSESSMENT REQUIRING INDEPENDENT HISTORIAN OR CATEGORY 2: INDEPENDENT INTERPRETATION OF TESTS BY ANOTHER PHYSICIAN OR SPECIALIST OR CATEGORY 3: DISCUSSION OF MGT OR TEST INTERPRETATION W/EXTERNAL PHYSICIAN OR SPECIALIST ELEMENT 3: RISK RISK OF COMPLICATIONS AND/OR MORBIDITY OR MORTALITY OF PATIENT MANAGEMENT PROVIDER MUST THOROUGHLY DOCUMENT EACH ELEMENT THAT IS COVERED Not available 03/31/2025 15:59:04 Plan of Treatment Reminders Order Date Submit Date Provider Last Modified By Organization Details Last Modified Time Details Appointments FOLLOW UP 15 2024 03:30P M DR BRAY Not available Not available Not available Lab C-react elie protein , quantit ative, serum or plasma 2024 025 [facility], [address] [place] [address], [id number], 03/31/2025 16:07:10 CBC 2024 025 [facility], [address] [place] [address], [id number], 03/31/2025 16:07:10 CMP, serum or plasma 2024 025 [facility], [address] [place] [address], [id number], 03/31/2025 16:07:10 ESR (erythr ocyte sedimen tation rate), blood 2024 025 [facility], [address] [place] [address], [id number], 03/31/2025 16:07:10 vitamin B12, serum 2024 025 [facility], [address] [place] [address], [id number], 03/31/2025 16:07:10 CBC 2024 025 [facility], [address] [place] [address], [id number], 03/31/2025 16:07:10 CMP, serum or plasma 2024 025 [facility], [address] [place] [address], [id number], 03/31/2025 16:07:10 HbA1c (hemogl obin A1c), blood 2024 025 [facility], [address] [place] [address], [id number], 03/31/2025 16:07:10 lipid panel, serum 2024 025 [facility], [address] [place] [address], [id number], 03/31/2025 16:07:10 TSH, serum or plasma 2024 025 [facility], [address] [place] [address], [id number], 03/31/2025 16:07:10 uric acid, serum or plasma 2024 025 [facility], [address] [place] [address], [id number], 09/13/2024 16:01:47 CMP, serum or plasma 2024 025 [facility], [address] [place] [address], [id number], 09/16/2024 11:56:58 hemoglo bin A1c, QN, blood 2024 025 [facility], [address] [place] [address], [id number], 09/13/2024 16:01:25 CBC w/ auto diff 2024 025 [facility], [address] [place] [address], [id number], 09/13/2024 16:01:25 lipid panel, blood 2024 025 [facility], [address] [place] [address], [id number], 09/13/2024 16:01:25 uric acid, serum or plasma 2024 025 [facility], [address] [place] [address], [id number], 06/19/2024 15:43:06 CMP, serum or plasma 2024 025 [facility], [address] [place] [address], [id number], 06/24/2024 12:24:45 HbA1c (hemogl obin A1c), blood 2024 025 [facility], [address] [place] [address], [id number], 06/19/2024 15:41:44 CBC w/ auto diff 2024 025 [facility], [address] [place] [address], [id number], 06/19/2024 15:41:44 TSH + free T4, serum 2024 025 [facility], [address] [place] [address], [id number], 06/26/2024 08:11:17 HbA1c (hemogl obin A1c), blood 2023 024 [facility], [place], [address], 12/25/2023 14:12:05 HbA1c (hemogl obin A1c), blood 2023 024 [facility], [place], [address], 12/25/2023 14:12:05 CMP, serum or plasma 2023 024 [facility], [place], [address], 12/25/2023 14:22:31 Referral podiatr ist referra l 2024 025 [facility], [address], [place], [address], 09/16/2024 16:25:33 Procedures None recorde d. Surgeries None recorde d. Imaging XR, lumbosa cral spine, 2 or 3 view 2024 025 [email or web address] (Imaging), [address] [place], [address], 09/27/2024 09:59:37 US, duplex, arteria l, lower extremi ty, complet e 2024 025 [facility], [address], [place], [address], 07/03/2024 08:29:36 pharmac ologic stress test - severe neuropa thy, unable to tolerat e a stress test due to this 2023 024 [facility] (Outt Non-Invasive Cardiology Scheduling), [address] [place], [address], 12/27/2023 08:35:45 Medication Orders metroni dazole 0.75 % topical gel 2024 025 [facility]/Pharmacy #2024, [address] [place], [address], 03/31/2025 16:04:04 losarta n 25 mg tablet 2024 025 [facility]/Pharmacy #2024, [address] [place], [address], 03/31/2025 16:01:43 oxycodo ne 5 mg tablet [email or web address]/Pharmacy #5, [address] [place], [address], 03/31/2025 15:31:07 Mounjar o 15 mg/0.5 mL subcuta neous pen injecto r 2024 025 [facility]/Ph[facility]acy #2024, [address] [place], [address], 09/13/2024 15:56:10 tizanid ine 4 mg tablet 2024 025 [facility]acy #2024, [address] [place], [address], 09/13/2024 15:58:18 Patient TargetsNo targets recorded. Patient Instructions Encounter Date Encounter Id Patient Instructions Last Modified By Organization Details Last Modified Time 12/15/2023 [id number] type 2 diabetes: care instructions Not available 12/15/2023 12:39:25 03/31/2025 [id number] rosacea: care instructions Not available 03/31/2025 16:04:02 Reason for Referral [employer] Referral for Diab etic peripheral neuropathy neuropathy, feet pain bilaterally, no effect with medications Referring Physician: Richa Martinez, Internal Medicine, Encounter Date: 09/13/2024 Results Created Date Observation Date Name Description Value Unit Range Abnormal Flag Note LastModifiedBy Organization Detail LastModifiedTime 09/29/1909/27/2024 XR, lumbo sacra l spine , 2 or 3 view No observ ation record ed. [facility] (Medical Records) [address] [place], [address], 09/30/2024 13:28:35 10/08/19 25 10/07/2024 MRI, lumba r spine , w/o contr ast No observ ation record ed. [email or web address] [facility] [address] [address], [place], [address], 10/08/2024 13:46:10 12/05/19 25 12/04/2024 US, duple x, arter ial, lower extre mity, compl ete No observ ation record ed. [email or web address] [facility] [address], [place], [address], 12/04/2024 13:45:40 Result Notes None recorded. Problems Name Problem SNOMED Code Status Onset Date Resolution Date Notes Provider Name and Address Organization Details Recorded Time Gout 46723808 [facility] [place] [facility] 8 08:13:00 Impaired fasting glycemia 073645193 Active 2020 Margarito Bray DO [address] [place] [address], [address], [facility] 1 15:18:33 Moreno neuroma of bilateral feet 240452458431 89229 Active 2020 Margarito Bray DO [address] [place] [address], [address], [facility] 1 15:19:38 Essential hypertens ion 45046828 Active 2021 Margarito Bray DO [address] [place] [address], [address], [facility] 2 16:28:29 Celluliti s of right foot 927436746945 67941 Active 2021 Margarito Bray DO [address] [place] [address], [address], [facility] 2 16:29:41 Abscess of foot 554799451 Active 2021 JARED GOTTLIEB [address] [place] [address], [address], [facility] 2 16:54:19 Swelling of left foot 427942653 Active 2021 JARED GOTTLIEB [address] [place] [address], [address], [facility] 2 15:04:27 Neuropath y 999787981 Active 2021 JARED GOTTLIEB [address] [place] [address], [address], [facility] 2 15:09:37 Celluliti s 087259327 Active 2021 JARED GOTTLIEB [address] [place], [address], [facility] 2 15:10:17 Periphera l nerve disease 635960492 Active 2021 Margarito Bray, DO [address] [place] [address], [address], [facility] 2 21:43:32 Hyperglyc emia 88108072 Active 2022 Margarito Bray, DO [address] [place] [address], [address], [facility] 3 16:46:44 Hyperlipi demia 75291973 Active 2022 JARED GOTTLIEB [address] [place] [address], [address], [facility] 3 15:14:26 Paresthes ia of lower extremity 927088182 Active 2022 Margarito Bray, DO [address] [place] [address], [address], [facility] 3 21:21:12 Type 2 diabetes mellitus without complicat ion 359696255 Active 2022 Margarito Bray, DO [address] [place] [address], [address], [facility] 3 22:56:42 Spasm of back muscles 477080721 Active 2022 Margarito Bray, DO [address] [place] [address], [address], [facility] 3 11:45:07 Melena 7762485 Active 2023 JARED GOTTLIEB [address] [place] [address], [address], [facility] 4 11:48:04 Hypertens elie urgency 770478058 Active 2023 JARED GOTTLIEB [address] [place] [address], [address], [facility] 4 11:48:50 Hemochrom atosis 502453148 Active 2023 JARED GOTTLIEB [address] [place] [address], [address], [facility] 4 08:46:57 Neuralgia 97607302 Active 2023 JARED GOTTLIEB [address] [place] [address], [address], [facility] 4 15:11:43 Hematoche sergey 925403460 Active 2023 JARED GOTTLIEB [address] [place] [address], [address], [facility] 4 09:10:14 Diabetic periphera l neuropath y 975593743 Active 2023 JARED GOTTLIEB [address] [place] [address], [address], [facility] 5 15:50:28 Dyspnea on exertion 42725197 Active 2023 Margarito Bray DO [address] [place] [address], [address], [facility] 4 16:53:36 Dyspnea 883937910 Active 2023 JARED GOTTLIEB [address] [place] [address], [address], [facility] 4 09:02:25 Atypical chest pain 809379084 Active 2023 JARED GOTTLIEB [address] [place] [address], [address], [facility] 4 15:33:28 Periphera l sensory neuropath y due to type 2 diabetes mellitus 899867649492 105 Active 2023 Margarito Bray DO [address] [place] [address], [address], [facility] 4 12:37:44 Type 2 diabetes mellitus 99272254 Active 2023 JARED GOTTLIEB [address] [place], [address], [facility] 4 10:25:24 Degenerat ion of lumbar intervert ebral disc 01690557 Active 2024 JARED GOTTLIEB [address] [place], [address], [facility] 5 14:57:15 Spasm of muscle of lower back 712205475615 11005 Active 2024 JARED GOTTLIEB [address] [place], [address], [facility] 5 15:23:31 Intermitt ent claudicat ion 06105720 Active 2024 JARED GOTTLIEB [address] [place], [address], [facility] 5 15:28:30 Uric acid level above reference range 44675561 Active 2024 JARED GOTTLIEB [address] [place], [address], [facility] 5 15:36:04 Acute low back pain 977472095 Active 2024 JARED GOTTLIEB [address] [place], [address], [facility] 5 15:52:46 Problem of low back 813977867 Active 2024 JARED GOTTLIEB [address] [place], [address], [facility] 5 15:53:32 Gouty arthritis 14319621 Active 2024 JARED GOTTLIEB [address] [place], [address], [facility] 5 16:00:21 Rosacea 101664185 Active 2024 Margarito Bray DO [address] [place], [address], [facility] 5 16:02:56 Problem Notes None recorded. Procedures Surgical History Date Name Laterality Status Provider Name and Address Organization Details Recorded Time 4 WOUND CARE completed Leopoldo Corey O [address] [place], [address], [facility] 09/13/2023 09:04:27 Imaging Results None recorded. Procedure Notes None recorded. Medical Equipment None Reported. Allergies Allergen ID Allergen Name Allergen Category Reaction Reaction Severity Criticality Documentation Date Start Date Code Code System Note Provider Name and Address Organization Details Recorded Time 79 amlodipin e medicatio n Not available Not available Not available 07/04/2023 81037 RxNorm JARED GOTTLIEB [address] [place], [address], [facility] 4 11:47:16 8870 tizanidin e medicatio n confusion moderate high 06/24/20242024 68510 RxNorm Corrina Alfaro [facility] 5 15:06:20 Medications Name Sig Start Date Stop Date Status Note LastModified by Organization Details LastModified Time Prescriptio n - Clarificati on 09/13 completed Not Available Not Available Not Available Prescriptio n - Prior Authorizati on Request active Not Available Not Available N ot Available Santyl 250 unit/gram topical ointment APPLY 1 TO 2 GRAMS TOPICALLY TO THE AFFECTED AREA DAILY WITH DRESSING CHANGES 09/01 completed Not Available Not Available Not Available cyclobenzap rine 10 mg tablet TAKE 1 TABLET BY MOUTH THREE TIMES DAILY FOR 10 DAYS 06/24 completed Not Available Not Available Not Available Vitamin B-12 1,000 mcg/mL injection solution Inject 1 mL every month by intramusc ular route. 03/31 completed Not Available Not Available Not Available azithromyci n 250 mg tablet TAKE 2 TABLETS (500 MG) BY ORAL ROUTE ONCE DAILY FOR 1 DAY THEN 1 TABLET (250 MG) BY ORAL ROUTE ONCE DAILY FOR 4 DAYS 01/09 completed Not Available Not Available Not Available tizanidine 4 mg tablet TAKE 1 TABLET BY MOUTH EVERY 6 HOURS NEEDED FOR 14 DAYS 09/13 completed Not Available Not Available Not Available valacyclovi r 1 gram tablet TAKE 1 TABLET BY MOUTH EVERY 12 HOURS WITH MEALS FOR 7 DAYS 12/12 completed Not Available Not Available Not Available hydrocodone 5 mg-acetamin ophen 325 mg tablet 09/06 completed Not Available Not Available Not Available meloxicam 15 mg tablet TAKE 1 TABLET BY MOUTH EVERY DAY AFTER MEALS active Not Available Not Available No t Available lisinopril 20 mg tablet TAKE 1 TABLET BY MOUTH EVERY DAY 09/13 completed Not Available Not Available Not Available doxycycline hyclate 50 mg capsule TAKE 1 TABLET BY MOUTH EVERY DAY FOR 6 WEEKS 09/01 completed Not Available Not Available Not Available amlodipine 5 mg tablet TAKE 1 TABLET (5 MG TOTAL) BY MOUTH DAILY. 09/29 completed Not Available Not Available Not Available sulfamethox azole 800 mg-trimetho prim 160 mg tablet TAKE 1 TABLET BY MOUTH EVERY 12 HOURS FOR 10 DAYS 10/27 completed Not Available Not Available Not Available lovastatin 10 mg tablet Take 1 tablet every day by oral route for 90 days. 03/31 completed Not Available Not Available Not Available carvedilol 3.125 mg tablet TAKE 1 TABLET BY MOUTH TWICE DAILY 09/13 completed Not Available Not Available Not Available lidocaine-p rilocaine 2.5 %-2.5 % topical cream APPLY TOPICALLY TO THE AFFECTED AREA THREE TIMES DAILY FOR 4 DAYS 03/31 completed Not Available Not Available Not Available baclofen 20 mg tablet TAKE 1 TABLET BY MOUTH THREE TIMES A DAY NEEDED FOR 30 DAYS 09/13 completed Not Available Not Available Not Available terbinafine HCl 250 mg tablet Take 1 tablet every day by oral route for 30 days. 01/09 completed Not Available Not Available Not Available ciprofloxac in 0.3 % eye drops INSTILL 1 DROP INTO LEFT EYE EVERY 2 HOURS FOR 7 DAYS 03/08 completed Not Available Not Available Not Available OneTouch Ultra Test strips Take 1 strip twice a day by miscell. route for 30 days. 09/13 completed Not Available Not Available Not Available amitriptyli ne 10 mg tablet TAKE 1 TABLET BY MOUTH AT BEDTIME 12/12 completed Not Available Not Available Not Available amlodipine 10 mg tablet TAKE 1 TABLET BY MOUTH EVERY DAY 10/27 completed Not Available Not Available Not Available cephalexin 500 mg capsule TAKE 1 CAPSULE BY MOUTH FOUR TIMES DAILY FOR 10 DAYS 09/29 completed Not Available Not Available Not Available oseltamivir 75 mg capsule 09/06 completed Not Available Not Available Not Available lisinopril 10 mg tablet TAKE 1 TABLET BY MOUTH EVERY DAY 07/10 completed Not Available Not Available Not Available losartan 25 mg tablet Take 1 tablet every day by oral route for 30 days. 2024 active Not Available Not Available Not Avai lable indomethaci n 25 mg capsule TAKE 1 CAPSULE BY MOUTH EVERY DAY NEEDED active Not Available Not Available No t Available capsaicin 0.025 % topical patch Apply 1 patch 3 times a day by topical route as directed for 30 days. 06/19 completed Not Available Not Available Not Available gabapentin 300 mg capsule TAKE 1 CAPSULE BY MOUTH EVERY NIGHT GRADUALLY INCREASE TO THREE TIMES A DAY TOLERATED 12/16 completed Not Available Not Available Not Available allopurinol 300 mg tablet TAKE 1 TABLET BY MOUTH EVERY DAY active Not Available Not Available No t Available bisacodyl 5 mg tablet,krish yed release TAKE 4 TABLETS BY MOUTH AT NOON THE DAY BEFORE COLONOSCO PY 09/13 completed Not Available Not Available Not Available gabapentin 100 mg capsule 05/10 completed Not Available Not Available Not Available ibuprofen 600 mg tablet TAKE 1 TABLET BY MOUTH THREE TIMES A DAY FOR 30 DAYS 03/31 completed Not Available Not Available Not Available polyethylen e glycol 3350 17 gram/dose oral powder MIX AND DRINK DIRECTED BY GASTROENT EROLOGY DEPARTMEN T 09/13 completed Not Available Not Available Not Available metformin ER 500 mg tablet,exte nded release 24 hr TAKE 1 TABLET BY MOUTH EVERY DAY IN THE MORNING 09/13 completed Not Available Not Available Not Available metronidazo le 0.75 % topical gel APPLY A THIN LAYER TO THE AFFECTED AREA(S) BY TOPICAL ROUTE 2 TIMES PER DAY IN THE MORNING AND EVENING 2024 active Not Available Not Available Not Avai lable doxycycline hyclate 100 mg tablet TAKE 1 TABLET BY MOUTH TWICE A DAY FOR 14 DAYS 03/31 completed Not Available Not Available Not Available oxycodone 5 mg tablet TAKE 1 TABLET BY MOUTH EVERY 6 HOURS NEEDED FOR 7 DAYS 03/31 completed Not Available Not Available Not Available tadalafil 5 mg tablet TAKE 1 TABLET BY MOUTH EVERY DAY 2023 active Not Available Not Available Not Avai lable duloxetine 30 mg capsule,del ayed release TAKE 1 CAPSULE BY MOUTH EVERY NIGHT AT BEDTIME 12/12 completed Not Available Not Available Not Available pregabalin 75 mg capsule TAKE ONE CAPSULE BY MOUTH IN THE MORNING AND 2 CAPSULES IN THE EVENING 03/17 completed Not Available Not Available Not Available pregabalin 100 mg capsule TAKE 1 CAPSULE BY MOUTH THREE TIMES A DAY active Not Available Not Available No t Available Fish Oil 04/05 completed Not Available Not Available Not Available multivitami n 01/09 completed Not Available Not Available Not Available Qutenza 8 % topical kit APPLY 3 PATCHES TOPICALLY FOR 30 MINUTES EVERY 90 DAYS NEEDED 03/31 completed Not Available Not Available Not Available Dexcom G6 Transmitter device 06/19 completed Not Available Not Available Not Available Mounjaro 7.5 mg/0.5 mL subcutaneou s pen injector Inject 7.5 mg every week by subcutane ous route as directed for 30 days. 04/29 completed Not Available Not Available Not Available Mounjaro 5 mg/0.5 mL subcutaneou s pen injector Inject 5 mg every week by subcutane ous route as directed for 30 days. 04/29 completed Not Available Not Available Not Available Mounjaro 15 mg/0.5 mL subcutaneou s pen injector INJECT 15 MG EVERY WEEK BY SUBCUTANE OUS ROUTE DIRECTED FOR 30 DAYS NEEDS APPT FOR FURTHER REFILLS active Not Available Not Available No t Available Mounjaro 10 mg/0.5 mL subcutaneou s pen injector ADMINISTE R 10 MG UNDER THE SKIN EVERY WEEK 05/24 completed Not Available Not Available Not Available Mounjaro 12.5 mg/0.5 mL subcutaneou s pen injector ADMINISTE R 12.5 MG UNDER THE SKIN EVERY WEEK 05/24 completed Not Available Not Available Not Available Mounjaro 2.5 mg/0.5 mL subcutaneou s pen injector INJECT 2.5 MG UNDER THE SKIN EVERY WEEK 03/06 completed Not Available Not Available Not Available Dexcom G7 Supervisor Prepress USE TO MONITOR BLOOD SUGAR EVERY DAY 03/31 completed Not Available Not Available Not Available Dexcom G7 Sensor device USE TO MONITOR BLOOD SUGAR LEVEL EVERY DAY 03/31 completed Not Available Not Available Not Available Vitals Date Recorded Body height Body mass index (BMI) Body weight Heart rate Oxygen saturation Systolic And Diastolic Provider Name and Address Organization Details Last Updated DateTime 5 173.99 cm 28.6 kg/m2 62242.1 4 g 78 /min 96 % 122/72 mm[Hg] Ramon Rivas [facility] 5 14:58:35 Date Recorded Body height Body mass index (BMI) Body weight Heart rate Oxygen saturation Systolic And Diastolic Provider Name and Address Organization Details Last Updated DateTime 5 173.99 cm 27.4 kg/m2 98025.0 4 g 90 /min 99 % 114/72 mm[Hg] Sulema Reina [facility] 5 15:41:14 Date Recorded Body height Body mass index (BMI) Body weight Heart rate Oxygen saturation Systolic And Diastolic Provider Name and Address Organization Details Last Updated DateTime 4 173.99 cm 30.9 kg/m2 10596.3 9 g 74 /min 97 % 120/80 mm[Hg] Sulema Reina [facility] 4 15:26:59 Date Recorded Body height Body mass index (BMI) Body weight Heart rate Oxygen saturation Systolic And Diastolic Provider Name and Address Organization Details Last Updated DateTime 4 173.99 cm 30.9 kg/m2 10301.0 3 g 86 /min 97 % 110/70 mm[Hg] Margarito Bray, DO [address] [place], [address], [facility] 4 11:24:34 Date Recorded Body height Body mass index (BMI) Body weight Heart rate Oxygen saturation Systolic And Diastolic Provider Name and Address Organization Details Last Updated DateTime 5 173.99 cm 27.6 kg/m2 72116 g 79 /min 97 % 130/84 mm[Hg] Ana Rodriguez [facility] 15:29:16 Social History Question Answer Notes LastModified by Organizat ion Details LastModified Time Tobacco Smoking Status Never Smoker Not Available [facility] 02/04/2020 03:36:24 What Was The Date Of Your Most Recent Tobacco Screening? 03/31/2025 [email or web address] Information not available 03/31/2025 Sex: Male Functional Status Question Answer Note LastModified by Organization D etails LastModified Time Do you or have you ever used any other forms of tobacco or nicotine? No Information not available 09/01/2021 Mental Status None recorded. Family History Relationship Description Onset Age of this Age Resolved Age Notes LastModified by Organization Details LastModified Time Mother Mild chronic obstructive pulmonary disease conver josefina disord er [email or web address] Not available 12/13/2023 15:20:32 Father Family history of malignant neoplasm of pancreas 60 [email or web address] Not available 02/2024 15:20:32 Maternal Grandfather Harmful pattern of use of alcohol 40 cirrho sis [email or web address] Not available 09/06/2017 14:16:51 Medical History Condition Response Coronary Artery Disease N Gout Y Kidney Stones N Blood Diseases N Hyperthyroidism N Breast Cancer N Hypothyroidism N Lung Disease N Depression N COPD N Defects or Inherited Disease N Difficulty Swallowing N Anesthesia Complications Meniere's disease N Anxiety Disorder Y Muscle, Joint, or Bone Problems N Obesity Y Vision or Eye Problems Y Arthritis N Mental Disorder N Cancer N Stroke N Varicosities N Bladder or Kidney Problems N High Cholesterol N Liver Disease N Fibromyalgia N Headaches N Kidney Disease N Allergies/Hayfever N Heart Problems N Hospitalizations N Thyroid Problems N GI Problems N Eating Disorder N Skin Problems N Anemia N Constipation N Mental Illness N Diabetes N Seizures/Epilepsy N Tuberculosis N Congestive Heart Failure (CHF) N Eczema Y Abuse/Domestic Violence N Diverticulitis N Asthma N Reflux/GERD Y Hepatitis N Heart Disease N Pulmonary Embolism N Chronic Ear Infections N Hypertension N Chicken Pox Y Autism Spectrum Disorder (ASD) N Thrombophilias N Immunizations Vaccine Type Date Status Note Provider Nam e and Address Organization Details Recorded Time COVID-19, mRNA, LNP-S, PF, 100 mcg/0.5mL dose or 50 mcg/0.25mL dose 04/13/2020 completed Not Available [facility] 2 02:48:47 COVID-19, mRNA, LNP-S, PF, 100 mcg/0.5mL dose or 50 mcg/0.25mL dose 05/18/2020 completed Not Available [facility] 2 02:48:47 Past Encounters Encounter ID Performer Location Encounter Start Date Encounter Closed Date Diagnosis/Indication Diagnosis SNOMED-CT Code Diagnosis ICD10 Code Diagnosis IMO Codes Diagnosis Note [id number] Margarito Bray [facility] Internal Medicine [address],[place] [address] 09/06/2017 13:30:20 09/06/2017 16:39:45 Adult health examination 207532010 Z00.00 Gout 84542230 M10.9 Fatigue 57342893 R53.83 [id number] Margarito Bray [facility] Internal Medicine [address] [place] [address],[place] [address] 04/05/2019 10:45:32 04/05/2019 11:08:46 Adult health examination 839914425 Z00.00 will get fbw Active or passive immunization 438467301 Z23 [id number] Margarito Bray [facility] Internal Medicine [address] [place] [address],[place] [address] 06/26/2019 10:25:24 06/26/2019 15:43:37 Acute pharyngitis 930868532 J02.9 will send out rapid strep for culture in the meantime will treat with Z vignesh pending the results Pain in throat 213040534 R07.0 pt has been having persistent pain in the right side of his throat for the past mouth that radiates to his right ear no other accompanyi ng symptoms [id number] Margarito Bray [facility] Internal Medicine [address] [place] [address],[place] [address] 01/10/2020 12:02:29 01/10/2020 13:48:59 Nacho's neuroma of right foot 0635956447 57599 G57.61 will have him eval by podiatry Pain in right foot 32983 05038 35966 M79.671 possible moreno's neuroma based on symtpoms [id number] Margarito Bray [facility] Internal Medicine [address], [place] [facility] [place] [address] 10/30/2020 09:42:35 10/30/2020 10:35:47 Rosacea, papular type 32537902 L71.9 Adult heal th examination 222527534 Z00.00 will get fbw Gout 22328970 M10.9 will check uric levels [id number] Margarito Bray [facility] Internal Medicine [address], [place] [facility] [address] 12/09/2020 16:29:23 12/09/2020 17:13:33 Impaired fasting glycemia 022329942 R73.01 yi follow he has changed diet and [place] [id number] Margarito Bray [facility] Internal [facility] [address], [place] [address] 03/08/2021 14:46:21 03/08/2021 15:52:24 Degeneration of cervical intervertebral disc 42262435 M50.30 having left radiculopa thy with parasthesi a of left hand and weakness Impaired f asting glycemia 003383039 R73.01 yi follow he has changed diet and is exercising vigorously we will rechk the lab in [address] [place] [address] katheryn adeel of bilateral feet 1280822958 9543851 G57.63 [id number] Margarito Bray [facility] Internal Medicine [address], [place] [facility] [place] [address] 09/01/2021 15:27:26 09/01/2021 16:43:48 Active or passive immunization 959993198 Z23 patient advised he is due for tdap Essential hypertension 63882505 I10 we yi increase the amlodipine Cellulitis of right foot 8344361467 1493716 L03.115 [id number] Margarito Bray [facility] Internal Medicine [address],[place] [address] 10/27/2021 14:34:50 10/27/2021 15:32:08 Swelling of left foot 858411798 M79.89 will fu with MRI left foot Family his tory of malignant neoplasm of prostate 663692280 Z80.42 will check PSA Neuropathy 063612478 G62 .89 will fu with A1c Cellulitis 277566325 L03 .031 will check to make sure he is healing Gout 39388182 M10.9 will recheck levels [id number] Margarito Bray [facility] Internal Medicine [address] [facility] [address],[place] [address] 05/10/2022 15:15:58 05/10/2022 16:05:41 Essential hypertension 51298278 I10 we will increase the amlodipine Neuropathy 938183222 G62 .89 vit b12 lab etc [id number] Margarito Bray [facility] Internal Medicine [address] [facility] [address],[place] [address] 05/20/2022 10:41:05 05/20/2022 13:43:56 Cobalamin deficiency 053958355 E53.8 [id number] Margarito Bray [facility] Internal Medicine [address] [facility] [address],[place] [address] 05/27/2022 10:29:41 05/27/2022 14:18:27 Cobalamin deficiency 614209896 E53.8 [id number] Margarito Bray [facility] Internal Medicine [address] [facility] [address],[place] [address] 06/06/2022 10:05:31 06/06/2022 10:18:14 Cobalamin deficiency 195740346 E53.8 [id number] Margarito Bray [facility] Internal Medicine [address] [facility] [address],[place] [address] 06/10/2022 10:28:20 06/20/2022 11:06:08 Cobalamin deficiency 804459883 E53.8 [id number] Margarito Bray [facility] Internal Medicine [address] [facility] [address],[place] [address] 07/11/2022 08:56:46 07/11/2022 09:08:39 Cobalamin deficiency 561821453 E53.8 [id number] Margarito Bray [facility] Internal Medicine [address],[place] [address] 08/12/2022 09:42:40 08/12/2022 11:22:04 Cobalamin deficiency 122388908 E53.8 [id number] Margarito Prashant Bray [facility] Internal Medicine [address],[place] [address] 12/16/2022 09:30:38 12/16/2022 11:07:42 Hyperglycemia 82501095 R73.9 will need an a1c check he has lost weight so anticipate this is good Essential hypertension 01327685 I10 has not tolerated amlodipine nor lisinopril we will try carvedilol Neuropathy 967206989 G62 .89 vit b12 lab etc Peripheral nerve disease 991174176 G64 given the evidence of the NCT we [place] [id number] Margarito Bray [facility] Internal Medicine [address] [place] [address], [place] [address] 02/15/2023 09:39:53 02/15/2023 16:12:40 [id number] Margarito Bray [facility] Internal Medicine [address],[place] [address] 07/04/2023 11:30:27 07/04/2023 15:22:20 Neuropathy 980399799 G62.89 will try sending this in for patient since it hasn't gone through with his specialist Essential hypertension 10588406 I10 will set up with increased to lisinopril Melena 9606421 K92.[address] with [address] abd/pelvis has colonoscop y appt scheduled in November Hypertensive urgency 443 291642 I16.0 increase lisinopril to 20 mg and fu next week [id number] Margarito Bray [facility] Internal Medicine [address],[place] [address] 07/11/2023 08:59:20 07/11/2023 10:00:20 Cellulitis 547573440 L03.031 stable Hematochezia 168756269 K 92.1 resolvedst ill waiting on CTgiven number to call Essential hypertension 80185392 I10 will set up with increased to lisinopril [id number] Margarito Bray [facility] Internal Medicine [address], [place] [address] 09/13/2023 08:31:40 09/13/2023 10:19:22 Type 2 diabetes mellitus without complication 723073593 E11.9 as noted will nbe getting lab Diabetic p eripheral neuropathy 588253895 E11.40 capsacin patch applicatio n under strict protocolwe ll tolerated so farwill return in 3 months for repeat [id number] Margarito Bray [facility] Internal [facility] [address],[place] [address] 12/13/2023 15:19:56 12/13/2023 15:45:57 Dyspnea 129290154 R06.02 will set up with stress test (pharm) Depression screening 171 422859 Z13.31 SCREENING NEGATIVE Atypical chest pain 1025 43119 R07.89 pharm stress fu after we order and schedule Diabetic p eripheral neuropathy 229596227 E11.41 seeing [facility] Type 2 candelario betes mellitus without complication 649777646 E11.9 stable working on treating the neuropathy [id number] Margarito Bray [facility] Internal Medicine [address],[place] [address] 12/15/2023 11:10:30 12/15/2023 15:13:49 Peripheral sensory neuropathy due to type 2 diabetes mellitus 1504068628 13362 E11.42 caapsacin therapy aplication pt tolerated well and was disch with usual instructio ns after feet cleaned of excess Type 2 candelario betes mellitus without complication 479159700 E11.9 as noted will nbe getting lab [id number] Margarito Bray [facility] Internal Medicine [address], [place] [address] 06/19/2024 14:46:01 06/19/2024 16:00:18 Degeneration of lumbar intervertebral disc 04422002 M51.369 stable Spasm of m uscle of lower back 0234965998 1225035 M62.830 trial tizanidine for both the back and the nerve pain Neuropathy 002548942 G62 .89 will try sending this in for patient since it hasn't gone through with his specialist Intermitte nt claudication 13834827 I73.9 set up with duplex Type 2 candelario betes mellitus 94563603 E11.9 needs recheck levels Thyroid di sorder screening 285504427 Z13.29 check thyroid since he has been on the mounjaro Essential hypertension 68250190 I10 dropping doses with the weight loss Uric acid level above reference range 02421062 E79.0 will set up with uric acid check as well [id number] Margarito Bray [facility] Internal Medicine [address], [place] [address] 09/13/2024 15:31:23 09/13/2024 16:14:42 Depression screening 910809660 Z13.31 SCREENING NEGATIVE Problem of low back 7246 44840 M53.9 [id number] agreed to setting up imaging Acute low back pain 2788 91059 M54.50 90987457 will start with XRgiven oxy for pain Diabetic p eripheral neuropathy 407411672 E11.42 156824 will set up with podiatry Type 2 candelario betes mellitus 25962411 E11.9 needs recheck levels Gouty arthritis 97530470 M10.9 891367 will recheck levels [id number] Margarito Bray [facility] Internal Medicine [address], [place] [address] 03/31/2025 15:22:27 03/31/2025 16:19:22 Essential hypertension 60159800 I10 has not tolerated amlodipine nor lisinopril we will try losartan Depression screening 171 861954 Z13.31 0376334 neg Peripheral nerve disease 918253367 G64 given the evidence of the NCT we will have him Jose 905870720 L71.9 818 Health Concerns Section Related Observation LastModified by Organization Detai ls LastModified Time None Recorded Concern Status LastModified by Organization Details LastModified Time None Recorded Advance Directives Directive None Recorded Payers Insurance Date Sequence Insurance Name Policy Number Policy Oden Covered Member ID Oden Member ID Guarantor Name 06/19/2024 1 [facility]: [facility] [place] [place] [id number] Fidel Hernandez [id number] Fidel Cleary Mary 03/28/2025 1 [facility] IN[facility] (INDEMNITY) [id number] Fidel Kimti [id number] Fidel Cleary Mary Notes Date Note Type Note Provider Name a nd Address Organization Details Recorded Time 12/13/2023 text/html ROS as noted in the HPI ECHO F/U PER MB patient had been having sob, MB ordered Echo which was normal, normal EF, normal septal wall thickness and LV thickness without signs of hypertrophyno valvular abnormalityalso an odd episode of bloody diarrhea where CT was negative (possibly a bout of colitis which resolved by itself) possible next discussion is PFT testing and stress test since echo was non-revealing to a cause of the sob BP: today in the office the patient BP is 120/80 L arm sitting the patient is doing well on the BP medication with no side effects and no adjustment of their medications needed today at the appointment well-controlled on medication denies chest pain, sob, ankle swelling, orthopnea, palpitations fu with mb to place next feet pad placement JARED GOTTLIEB [address] [place], [address], [facility] Internal Medicine 12/13/2023 15:45:29 12/15/2023 text/html here for application has not noticed major changes yet Margarito Bray DO [address] [place], [address], [facility] Internal Medicine 12/15/2023 12:41:20 06/19/2024 text/html ROS as noted in the HPI c/o low back pain the patient reports that lower back pain, into the right buttockthe patient reports that has back spasmswill start on medication for msk cramps also may benefit some of the neuropathy discussed feet, notes they are cold all the timehasn't had an US duplex done ever which I suggest we go forward with needs recheck lab work screen thyroid recheck uric acid hold carvedilol with weight loss JARED GOTTLIEB [address] [place], [address], [facility] Internal Medicine 06/19/2024 15:41:33 09/13/2024 text/html ROS as noted in the HPI c/o low back pain and bilateral the patient is still having pain in the right side of his lower backthe patient is moving across the lower back the patient denies fall or trauma or injurythe patient denies any new changes to the pain, still sore and sharp when he gets up from sitting for prolonged period of time the patient agreed to XR, then MRI will set up with roxy nuñez after his imaging JARED GOTTLIEB [address] [place], [address], [facility] Internal Medicine 09/13/2024 16:01:55 03/31/2025 text/html ROS as noted in the HPI here for rechk and is having a prob with optSelStor appt showing cotton wool spots from bprelates also that he is having ongoing neuropathy in his legsalso was told his bp was too high Margarito Bray DO [address] [place], [address], [facility] Internal Medicine 03/31/2025 16:06:55
--- OUTSIDE RECORDS SUMMARY | 2025-03-31 17:56 | XMS_ITS | Clinical Summary ---
Author Organization [facility] Address [address] [place] [address] Phone Care Team Providers Care Tailing Machine Operator Name Role Phone Margarito Parker Primary Care Provider [phone] Allergies No known active allergies Medications allopurinol (ZYLOPRIM) 100 MG tablet Take 100 mg by mouth daily. Active amLODIPine (NORVASC) 5 MG tablet Take 1 tablet (5 mg total) by mouth daily. 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 Social History Tobacco Use Types Packs/Day Years [...] PM EDT Sexual Orientation Not on file Last Filed Vital Signs Vital Sign Reading Time Taken Comments Blood Pressure 152/100 08/25/2021 7:37 PM EDT Pulse 82 08/25/2021 7:37 PM EDT Temperature 36.8 C (98.2 F) 08/25/2021 7:37 PM EDT Respiratory Rate 18 08/25/2021 7:37 PM EDT Oxygen Saturation 99% 08/25/2021 7:37 PM EDT Inhaled Oxygen Concentration - - Weight 88.5 kg (195 lb) 09/13/2021 2:23 PM EDT Height 175.3 cm (5' 9 ) 09/13/2021 2:23 PM EDT Body Mass Index 28.8 09/13/2021 2:23 PM EDT Plan of Treatment Health Maintenance Due Date Last Done Comments Adult Td,Tdap Booster 1972 DEPRESSION SCREENING 1984 SMOKING Hx and SMOKELESS TOBACCO SCREENING 02/25/1985 HIV ONE-TIME SCREENING (18-6 5 YEARS) 02/25/1990 COLOGUARD 02/25/2017 COLONOSCOPY 02/25/2017 COLORECTAL CANCER SCREENING 02/25/2017 FIT TEST 02/25/2017 FOBT 02/25/2017 SIGMOIDOSCOPY 02/25/2017 VIRTUAL COLONOSCOPY 02/25/2017 PNEUMOCOCCAL VACCINES (50+ years) (1 of 1 - PCV) 02/25/2022 ZOSTER VACCINES (1 of 2) 02/25/2022 INFLUENZA VACCINE (#1) 2024 COVID-19 VACCINE (3 - 2024-2 6 season) 2024 05/18/2020, 04/13/2020 CREATININE LEVEL 12/24/2024 12/25/2023, 08/25/2021 LIPID PANEL 10/30/2025 10/30/2020, 10/30/2020 RSV VACCINE (1 - 1-dose 75+ series) 02/25/2047 HEPATITIS C SCREENING Completed 12/14/2022 HEPATITIS A VACCINES Aged Out No long er eligible based on patient's age to complete this topic HIB VACCINES Aged Out No longer eligi ble based on patient's age to complete this topic MENINGOCOCCAL VACCINES (ACWY) Aged Out No longer eligible based on patient's age to complete this topic MENINGOCOCCAL VACCINES (B) Aged Out N o longer eligible based on patient's age to complete this topic Medical Devices Not on file Procedures Procedure Name Priority Date/Time Associated Diagnosis Comments COMPREHENSIVE METABOLIC PANEL (CMP) Routine 12/25/2023 10:01 AM EDT Diabetic polyneuropathy associated with type 2 diabetes mellitus from Last 3 Months or Most Recently Relevant to Health Maintenance Results * (ABNORMAL) Comprehensive metabolic panel (12/25/2023 10:01 AM EDT) SODIUM 135 133 - 146 mmol/L [facility] POTASSIUM 4.5 3.3 - 5.1 mmol/L [facility] CHLORIDE 94(L) 96 - 108 mmol/L [facility] CO2 23 21 - 35 mmol/L [facility] BUN 12 6 - 19 mg/dL [facility] CREATININE 0.90 0.5 - 1.5 mg/dL [facility] GLUCOSE 189(H) 70 - 99 mg/dL [facility] ALBUMIN 4.2 3.9 - 4.8 g/dL [facility] TOTAL PROTEIN 7.3 6.5 - 8.0 g/dL [facility] CALCIUM 9.5 8.4 - 10.3 mg/dL [facility] ALKALINE PHOSPHATASE 92 39 - 117 U/L [facility] TOTAL BILIRUBIN 1.1 0.0 - 1.2 mg/dL [facility] AST 175(H) 0 - 37 U/L [facility] ALT 124(H) 0 - 40 U/L [facility] GLOBULIN 3.1 1 - 4.8 g/dL [facility] EGFR 103 >59 mL/min/1.7 3m2 [facility] Comment:Estimated glomerular filtration rate calculated using the CKD-EPI refit equation. ANION GAP 23(H) 10 - 20 mmol/L [facility] Blood 12/25/2023 10:0 1 AM EDT 12/25/2023 10:03 AM EDT us Margarito Parker DO LAB BLOOD BKR ORDERABLES Final R esult [facility] [address] [place] [address] from Last 3 Months or Most Recently Relevant to Health Maintenance Insurance [employer] GIC PLUS PPO [employer] GIC PLUS PPO [employer] GIC PLUS PPO [employer] PL[employer] PLUS PPO [employer] PLUS PPO Care Teams Tailing Machine Operator Relationship Specialty Start Date End Date Margarito Parker DO [address] [place] [id number] PCP - General Internal Medicine 09/20/24 Additional Source Comments The information contained in this document represents components of the legal health record. It is not the complete legal health record.[facility]
--- OUTSIDE RECORDS SUMMARY | 2025-03-31 17:56 | XMS_ITS | Continuity of Care Document ---
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) MDM MODERATE MUST MEET 2 OUT OF [...] Not available Not available Not available Lab C-reactiv e protein, quantitat elie, serum or plasma 2024 025 [facility], [address] [place] [address], [id number], 03/31/2025 16:07:10 CBC 2024 025 [facility], [address] [place] [address], [id number], 03/31/2025 16:07:10 CMP, serum or plasma 2024 [facility], [address] [place] [address], [id number], 03/31/2025 16:07:10 ESR (erythroc yte sedimenta tion rate), blood 2024 [facility], [address] [place] [address], [address], 03/31/2025 16:07:10 vitamin B12, serum 2024 [facility], [address] [place] [address], [id number], 03/31/2025 16:07:10 CBC 2024 [facility], [address] [place] [address], 114[address], 03/31/2025 16:07:10 CMP, serum or plasma 2024 025 [facility], [address] [place] [address], [id number], 03/31/2025 16:07:10 HbA1c (hemoglob in A1c), blood 2024 [facility], [address] [place] [address], 40[address], 03/31/2025 16:07:10 lipid panel, serum 2024 [facility], [address] [place] [address], [id number], 03/31/2025 16:07:10 TSH, serum or plasma 2024 025 [facility], [address] [place] [address], [id number], 03/31/2025 16:07:10 Referral None recorded. Procedures None recorded. Surgeries None recorded. Imaging None recorded. Medication Orders metronida zole 0.75 % topical gel 2024 025 [facility][id number], [address] [place], [address], 03/31/2025 16:04:04 losartan 25 mg tablet 2024 025 [facility]2024, [address] [place], [address], 03/31/2025 16:01:43 Patient TargetsNo targets recorded. Patient Instructions Encounter Date Encounter Id Patient Instructions Last Modified By Organization Details Last Modified Time 03/31/2025 [id number] rosacea: care instructions Not available 03/31/2025 16:04:02 Reason for Referral None Reported. Problems Name Problem SNOMED Code Status Onset Date Resolution Date Notes Provider Name and Address Organization Details Recorded Time Gout 77709011 [facility] 08:13:00 Impaired fasting glycemia 339543724 Active 2020 Margarito Bray DO [address] [place] [address], [address], [facility] 1 15:18:33 Griffith neuroma of bilateral feet 855025125692 07807 Active 2020 Margarito Bray DO [address] [place] [address], [address], [facility] 1 15:19:38 Essential hypertens ion 66721177 Active 2021 Margarito Bray DO [address] [place] [address], [address], [facility] 2 16:28:29 Celluliti s of right foot 786387730109 07797 Active 2021 Margarito Bray DO [address] [place] [address], [address], [facility] 2 16:29:41 Abscess of foot 938176267 Active 2021 JARED GOTTLIEB [address] [place] [address], [address], [facility] 2 16:54:19 Swelling of left foot 850755527 Active 2021 JARED GOTTLIEB [address] [place] [address], [address], [facility] 2 15:04:27 Neuropath y 102159640 Active 2021 JARED GOTTLIEB [address] [place] [address], [address], [facility] 2 15:09:37 Celluliti s 172406091 Active 2021 JARED GOTTLIEB [address] [place] [address], [address], [facility] 2 15:10:17 Periphera l nerve disease 587492966 Active 2021 Margarito Bray DO [address] [place] [address], [address], [facility] 2 21:43:32 Hyperglyc emia 09412306 Active 2022 Margarito Bray DO [address] [place] [address], [address], [facility] 3 16:46:44 Hyperlipi demia 19691508 Active 2022 JARED GOTTLIEB [address] [place] [address], [address], [facility] 3 15:14:26 Paresthes ia of lower extremity 595488822 Active 2022 Margarito Bray, [address] [place] [address], [address], [facility] 3 21:21:12 Type 2 diabetes mellitus without complicat ion 975158692 Active 2022 Margarito Bray, DO [address] [place] [address], [address], [facility] 3 22:56:42 Spasm of back muscles 280692234 Active 2022 Margarito Bray, DO [address] [place] [address], [address], [facility] 3 11:45:07 Melena 5788553 Active 2023 JARED GOTTLIEB [address] [place] [address], [address], [facility] 4 11:48:04 Hypertens elie urgency 812333445 Active 2023 JARED GOTTLIEB [address] [place] [address], [address], [facility] 4 11:48:50 Hemochrom atosis 391753251 Active 2023 JARED GOTTLIEB [address] [place] [address], [address], [facility] 4 08:46:57 Neuralgia 54003369 Active 2023 JARED GOTTLIEB [address] [place] [address], [address], [facility] 4 15:11:43 Hematoche sergey 296887172 Active 2023 JARED GOTTLIEB [address] [place] [address], [address], [facility] 4 09:10:14 Diabetic periphera l neuropath y 137019671 Active 2023 JARED GOTTLIEB [address] [place] [address], [address], [facility] 5 15:50:28 Dyspnea on exertion 44830739 Active 2023 Margarito Bray DO [address] [place] [address], [address], [facility] 4 16:53:36 Dyspnea 513227704 Active 2023 JARED GOTTLIEB [address] [place], [address], [facility] 4 09:02:25 Atypical chest pain 955747766 Active 2023 JARED GOTTLIEB [address] [place], [address], [facility] 4 15:33:28 Periphera l sensory neuropath y due to type 2 diabetes mellitus 093185668203 105 Active 2023 Margarito Bray, [address] [place], [address], [facility] 4 12:37:44 Type 2 diabetes mellitus 07437460 Active 2023 JARED GOTTLIEB [address] [place], [address], [facility] 4 10:25:24 Degenerat ion of lumbar intervert ebral disc 79203532 Active 2024 JARED GOTTLIEB [address] [place], [address], [facility] 5 14:57:15 Spasm of muscle of lower back 922619723757 27824 Active 2024 JARED GOTTLIEB [address] [place], [address], [facility] 5 15:23:31 Intermitt ent claudicat ion 34875819 Active 2024 JARED GOTTLIEB [address] [place], [address], [facility] 5 15:28:30 Uric acid level above reference range 95488960 Active 2024 JARED GOTTLIEB [address] [place], [address], [facility] 5 15:36:04 Acute low back pain 780776040 Active 2024 JARED GOTTLIEB [address] [place], [address], [facility] 5 15:52:46 Problem of low back 099818277 Active 2024 JARED GOTTLIEB [address] [place], [address], [facility] 5 15:53:32 Gouty arthritis 73878514 Active 2024 JARED GOTTLIEB [address] [place], [address], [facility] 5 16:00:21 Rosacea 862677146 Active 2024 Margariot Bray DO [address] [place], [address], [facility] 5 16:02:56 Problem Notes None recorded. Procedures Surgical History Date Name Laterality Status Provider Name and Address Organization Details Recorded Time 4 WOUND CARE completed Leopoldo Corey [address] [place], [address], [facility] 09/13/2023 09:04:27 Imaging Results None recorded. Procedure Notes None recorded. Medical Equipment None Reported. Allergies Allergen ID Allergen Name Allergen Category Reaction Reaction Severity Criticality Documentation Date Start Date Code Code System Note Provider Name and Address Organization Details Recorded Time 7931 amlodipin e medicatio n Not available Not available Not available 07/04/2023 80518 RxNorm JARED GOTTLIEB [address] [place], [address], [facility] 4 11:47:16 8870 tizanidin e medicatio n confusion moderate high 06/24/20242024 06054 [facility] 15:06:20 Medications Name Sig Start Date [...] oral powder MIX AND DRINK DIRECTED BY [facility] T 09/13 completed Not Available [...] Available Not Available Not Available Dexcom G7 Arc Cutter Plasma Arc USE TO MONITOR BLOOD SUGAR EVERY DAY [...] Updated DateTime 5 173.99 cm 27.6 kg/m2 75106 g 79 /min 97 % 130/84 mm[Hg] [facility] 5 15:29:16 Social History Question Answer Notes LastModified by Organizat ion Details LastModified Time Tobacco Smoking Status Never Smoker Not Available [facility] 02/04/2020 03:36:24 What Was The Date Of [...] obstructive pulmonary disease conver josefina disord er [email or web address] Not available 12/13/2023 15:20:32 Father Family history of malignant neoplasm of pancreas 60 Not available 02/2024 15:20:32 Maternal Grandfather Harmful pattern of use of alcohol 40 cirrho sis blankawski Not available 09/06/2017 14:16:51 Medical History Condition [...] 50 mcg/0.25mL dose 04/13/2020 completed Not Available [facility] 2 02:48:47 COVID-19, mRNA, LNP-S, PF, 100 mcg/0.5mL dose or 50 mcg/0.25mL dose 05/18/2020 completed Not Available [facility] 2 02:48:47 Past Encounters Encounter ID Performer Location Encounter Start Date Encounter Closed Date Diagnosis/Indication Diagnosis SNOMED-CT Code Diagnosis ICD10 Code Diagnosis IMO Codes Diagnosis Note [id number] DO [facility] [address] [facility] [address] 03/31/2025 15:22:27 03/31/2025 16:19:22 Essential hypertension 51229374 I10 has not tolerated amlodipine nor lisinopril we will try losartan Depression screening 171 588726 Z13.31 4357939 neg Peripheral nerve disease 478413947 G64 given the evidence of the NCT we will have him Jose 498584440 L71.9 818 Health Concerns Section Related Observation LastModified by Organization Detai ls LastModified Time None Recorded Concern Status LastModified by Organization Details LastModified Time None Recorded Payers Encounter Date Sequence Insurance Name Policy Number Policy Oden Covered Member ID Oden Member ID Guarantor Name 03/31/2025 1 [employer] [facility] IN[facility]MNITY [facility]AN (INDEMNITY) [id number] Fidel Hernandez [id number] Fidel Hernandez Notes Date Note Type Note Provider Name a ks Address Organization Details Recorded Time 03/31/2025 text/html ROS as noted in the HPI here for rechk and is having a prob with opth appt showing cotton wool spots from bprelates also that he is having ongoing neuropathy in his legsalso was told his bp was too high Margarito Bray, DO [address] [facility], [place], [address], [facility] 03/31/2025 16:06:55
--- OUTSIDE RECORDS SUMMARY | 2025-03-31 17:56 | XMS_ITS | Clinical Summary ---
Author Organization [facility] Address [address] [id number] Care Team Providers Care Hemotherapist Name Role Phone Margarito Parker Primary Care Provider [phone] Medications Allopurinol (ZYLOPRIM) 300 MG tablet allopurinol 300 mg tablet TAKE 1 TABLET BY MOUTH EVERY DAY Active Immunizations Immunization Administration Dates Next Due COVID-19, mRNA (Moderna Pre Fall 2022) Monovalent, 100 mcg/0.5 ml or 50 mcg/0.25 ml dose 05/18/2020,04/13/2020 Social History Tobacco Use Types Packs/Day Years Used Date Smoking Tobacco: Never Assessed Intimate Partner Violence Answer Date R ecorded Fear of Current or Ex-Partner Not on file Emotionally Abused Not on file 11/24/2022 Physically Abused Not on file 11/24/2022 Sexually Abused Not on file 11/24/2022 Feel Safe at Home Not on file 11/24/2022 Sex and Gender Information Value Date Recorded Sex Assigned at Not on file Legal Sex Male 3:46 PM EST Gender Identity Not on file Sexual Orientation Not on file Last Filed Vital Signs Vital Sign Reading Time Taken Comments Blood Pressure 155/104 04/12/2022 2:18 PM EST Pulse 85 04/12/2022 2:18 PM EST Temperature - - Respiratory Rate - - Oxygen Saturation - - Inhaled Oxygen Concentration - - Weight - - Height - - Body Mass Index - - Plan of Treatment Health Maintenance Due Date Last Done Comments Hepatitis C Screening 1970 DTaP/Tdap/Td (1 - Tdap) 02/25/1990 Hep B (1 of 3 - 19+ 3-dose series) 02/25/1991 Colon Cancer Screening 02/25/2017 Pneumococcal 50+ years (1 of 1 - PCV) 02/25/2022 Zoster (Shingrix) (1 of 2) 02/25/2022 COVID-19 Vaccine (3 - 2024-2 6 season) 2024 05/18/2020, 04/13/2020 Influenza (#1) 2024 RSV (1 - 1-dose 75+ series) 02/25/2047 HPV Vaccine (No Doses Required) Completed Hep A Aged Out No longer eligi ble based on patient's age to complete this topic Hib Aged Out No longer eligi ble based on patient's age to complete this topic Meningococcal ACWY Aged Out No longer eligible based on patient's age to complete this topic Insurance BCBS FEE FOR SERVICE HMO Care Teams Hemotherapist Relationship Specialty Start Date End Date Margarito Parker [facility] [address] [place] [id number] PCP - General Internal Medicine 02/28/22
--- OUTSIDE RECORDS SUMMARY | 2025-03-31 17:56 | XMS_ITS | Encounter Summary ---
Author Organization [facility] Address [address] [place] [address] Phone Care Team Providers Care Transfer Coordinator Name Role Phone Margarito Parker DO Primary Care Provider [phone] Margarito Parker DO Unavailable Margarito Parker DO Primary Care Provider [phone] Encounter Details Date Type Department Care Team (Late st Contact Info) Description 10/02/2023 Procedure Pass [facility] [address] [place] [address] Social History Tobacco Use Types Packs/Day Years [...] documented as of this encounter Visit Diagnoses Not on filedocumented in this encounter Care Teams Transfer Coordinator Relationship Specialty Start Date End Date Margarito Parker DO [email or web address] PCP - General 01/16/17 09/19/24 Margarito Parker DO [address] [place] [address] PCP - General Internal Medicine 09/20/24 Margarito Parker DO [address] [place] [address] [email or web address] Insurance Assigned Provider 07/08/23 07/07/24 documented as of this encounter Additional Source Comments The information contained in this document represents components of the legal health record. It is not the complete legal health record.[facility]
[2025-03-31 18:25] LABS: MANUAL DIFF FLAG NO
[2025-03-31 18:50] LABS: Hematocrit 43.5 % (42.0-52.0); Hemoglobin 15.5 g/dl (14.0-18.0); Imm Gran Abs Auto 0.03 X10*3/uL (0.00-0.03); Imm Gran Pct Auto 0.5 % (0.0-0.4); Lymphocytes Absolute Auto 1.9 X10*3/uL (1.2-4.9); Mean Corpuscular HGB Conc 35.6 g/dl (31.0-36.0); Mean Corpuscular Hemoglobin 33.0 pg (27.0-33.0); Mean Corpuscular Volume 92.8 fL (80.0-98.0); NRBC Abs Auto 0.000 X10*3/uL (0.0-0.012); NRBC Pct Auto 0.0 /100WBC (0.0-0.2); Platelet Count 195 X10*3/uL (160-400); Red Blood Count 4.69 X10*6/uL (4.60-5.80); White Blood Count 6.6 X10*3/uL (4.8-10.8)
[2025-03-31 19:01] LABS: Alanine Aminotransferase 33 U/L (0-40); Albumin Level 4.7 g/dL (3.5-5.0); Alkaline Phosphatase 76 U/L (39-117); Anion Gap 13 (12-20); Aspartate Amino Transferase 37 U/L (5-37); Blood Urea Nitrogen 12 mg/dL (9-16); Calcium 10.1 mg/dL (8.4-10.2); Carbon Dioxide 28 mmol/L (22-29); Chloride 104 mmol/L (96-108); Estimated Glomerular Filt Rate > 60; Potassium 4.9 mmol/L (3.3-5.1); Sodium 140 mmol/L (135-145); Total Protein 7.4 g/dL (6.5-8.0)
[2025-03-31 19:17] LABS: Thyroid Stimulating Hormone 2.36 uIU/mL (0.32-4.0)
[2025-03-31 19:30] LABS: Vitamin B12 214 pg/mL (200-900)
== END 2025-03-31 16:09 | disposition home or self-care (01) ==
LOC: HO.MANLDS 16:08
PROVIDERS: Visit Provider Internal Medicine
DX: G64 Other disorders of peripheral nervous system (principal); Z13.29 Encounter for screening for other suspected endocrine disorder
CPT/HCPCS: 36415; 80053; 82607; 83036; 84443; 85025; 85652; 86140